=== PATIENT | female | born 1985 | race Caucasian/White ===

== ENCOUNTER 2022-12-16 16:59 | Emergency (ER) | payer OTHER, SELFPAY ==
[2022-12-16 17:15] VITALS: BP 138/82; PULSE 68; RESP 16; TEMP 36.8; O2SAT 100
--- NOTE | 2022-12-16 17:59 | ED.SKABFB ---
HPI - Skin/Abscess/Foreign Bdy General Chief complaint: Skin/Abscess/Foreign Body Stated complaint: Rash Source: patient Mode of arrival: ambulatory Limitations: no limitations History of Present Illness HPI narrative: 37-year-old female presents to [facility] with complaints of erythematous itchy rash to her posterior right thigh and posterior right knee for the past week. Patient denies new medications, new soaps new detergents. Patient reports that she does go fishing often. Patient has been applying hytl-ymo-gyxfzpp hydrocortisone cream with little relief. Patient denies shortness of breath, wheezing, trouble swallowing or difficulty breathing. Patient reports that no other family members have similar rash MD complaint: rash Onset (ago): week(s) (1) Location: [facility] Relieving factors: none Exacerbating factors: none Associated symptoms: denies other symptoms Treatments prior to arrival: OTC topical medication Related Data Home Medications Medication Instructions Recorded Confirmed adalimumab 40 mg/0.4 mL 40 mg subcut DIRECTED 12/16/22 12/16/22 subcutaneous pen kit (Humira(CF) Pen) folic acid 1 mg tablet 1 mg PO DIRECTED 12/16/22 12/16/22 methotrexate sodium (PF) 25 mg/mL 25 mg DIRECTED 12/16/22 12/16/22 injection solution midodrine 5 mg tablet 5 mg DIRECTED 12/16/22 12/16/22 Allergies Allergy/AdvReac Type Severity Reaction Status Date / Time No Known Allergies Allergy Verified 10/02/17 15:25 Review of Systems Constitutional: Constitutional: Denies chills, Denies fatigue, Denies fever(s) and Denies weakness ENT: Denies dizziness Respiratory: Respiratory: Denies cough, Denies dyspnea and Denies wheezing Gastrointestinal: Gastrointestinal: Denies diarrhea, Denies nausea and Denies vomiting Integumentary/Breasts: Skin/Breast: Reports pruritus, Reports rash and Denies skin ulcer Neurologic: Denies vertigo, Denies dizziness, Denies syncope and Denies headache(s) [facility] Family History Family History Sibling Family history of mental disorder Mother Family history of type 2 diabetes mellitus Other Asthma Social History Social History Smoking status: Never smoker Alcohol intake: never Comments At time of signature, I agree with nursing past medical, surgical, social and family history. There is no relevant family history pertinent to the presenting complaint. Exam Const: General: healthy appearing and no acute distress Nutritional Appearance: well nourished Orientation/consciousness: patient oriented x3 Limitations: no limitations HENMT: Head: normal to inspection Eyes: Conjunctivae: conjunctivae normal Neck: Neck: normal visual inspection Resp: Effort & Inspection: normal respiratory effort and not labored Auscultation: clear to auscultation bilaterally, no crackles, no rales, no rhonchi and no wheezes Cardio: Rate: regular rate Rhythm: regular rhythm Heart sounds: no murmurs Skin: General skin exam: normal color Wounds: no wounds Other: Raised linear erythematous rash noted to posterior right thigh and right knee region. There is no surrounding erythema, bruising, purulent drainage or bleeding noted Neuro: General: patient oriented x3 Speech: normal speech Gait exam (Neuro): Normal gait present Psych: Affect: normal affect Attitude: cooperative Course Course Level of Care: Express Care Visit Vital Signs Vital signs: Vital Signs Temperature 36.8 C 12/16/22 17:15 Pulse Rate 68 12/16/22 17:15 Respiratory Rate 16 12/16/22 17:15 Blood Pressure 138/82 12/16/22 17:15 Pulse Oximetry 100 12/16/22 17:15 Oxygen Delivery Room Air 12/16/22 17:15 Temperature 36.8 C 12/16/22 17:15 Pulse Rate 68 12/16/22 17:15 Respiratory Rate 16 12/16/22 17:15 Blood Pressure 138/82 12/16/22 17:15 Pulse Oximetry 100 08/0
== END 2022-12-16 18:09 | disposition home or self-care (01) ==
PROVIDERS: Emergency Provider Nurse Practitioner Family
DX: L24.9 Irritant contact dermatitis, unspecified cause (principal); M06.9 Rheumatoid arthritis, unspecified; Z98.84 Bariatric surgery status
CPT/HCPCS: 99213; G0463

== ENCOUNTER 2024-09-23 07:59 | Observation (INO) | payer OTHER, SELFPAY ==
[2024-09-23] VITALS (17 sets, daily range): BP systolic 110–140; BP diastolic 65–99; PULSE 65–91; RESP 12–20; TEMP 36.6–37.3; O2SAT 93–100; BMI 30.7
--- NOTE | 2024-09-23 | ECHO_ITS ---
Patient Info Name: Marlene Zamarripa Age: 38 years : 1985 Gender: Female Ht: 66 in Wt: 201 lbs BSA: 2.09 m2 HR: 72 bpm BP: 123 / 87 mmHg Heart Rhythm: Sinus Rhythm Technical Quality: Fair Exam Date: 09/23/2024 2:20 PM Patient Status: I Admit Date: 09/23/2024 Exam Type: CA echo doppler w bubble study Complete two-dimensional, color flow and Doppler transthoracic echocardiogram is performed with agitated saline. Staff Referring Physician: Megan Lopez Heating Repair Technician: Laura Ga Attending Provider: Linda Mendoza Summary 1. The atrial septum is normal. 2. Agitated saline study with Valsalva is negative for fhfxq-nw-lolm shunt. 3. There is normal biventricular size and systolic function. 4. There is normal left ventricular diastolic function. 5. There are no significant valvular abnormalities. Left Ventricle Left ventricle is normal in size and systolic function. The left ventricular ejection fraction is visually estimated to be 60-65%. There is normal diastolic function. Right Ventricle The right ventricle is normal in size and systolic function. Left Atria The left atrium is normal size. Right Atria The right atrium is normal size. Atrial Septum The atrial septum is normal. Agitated saline study with Valsalva is negative for wcyhe-li-aewz shunt. Aortic Valve The aortic valve is probably and opens well. There is no aortic regurgitation. Pulmonic Valve The pulmonic valve is not well visualized. There is no color Doppler evidence of pulmonic valve regurgitation. Mitral Valve The mitral valve leaflets are thin and pliable. There is no mitral regurgitation. Tricuspid Valve The tricuspid valve is grossly normal. There is trace tricuspid regurgitation. Pericardium/Pleural Pericardium is normal in appearance with no evidence for significant pericardial effusion. Inferior Vena Cava Normal inferior vena cava with <50% collapse upon inspiration consistent with elevated right atrial pressure, 8 mmHg. Aorta The aortic root at the level of the sinus of Valsalva measures 3 1 cm in diameter. Left Ventricular Outflow Tract Name Value Normal LVOT 2D LVOT Diameter 2.0 cm LVOT Doppler LVOT Peak Velocity 86 cm/s LVOT Peak Gradient 3 mmHg LVOT Mean Gradient 1 mmHg LVOT VTI 18 cm LVOT VTI/AV VTI Ratio 0.9 LVOT Stroke Volume 58 ml LVOT CO 10.2 l/min LVOT CI 4.9 l/min/m2 Pulmonic Valve Name Value Normal RVOT Doppler RVOT Peak Velocity 32 cm/s RVOT Peak Gradient 0 mmHg PV Doppler PV Peak Velocity 62 cm/s PV Peak Gradient 2 mmHg Mitral Valve Name Value Normal MV Diastolic Function MV E Peak Velocity 76 cm/s MV A Peak Velocity 50 cm/s MV E/A 1.5 MV Decel Time (PW) 192 ms MV Annular TDI MV E/e' (Septal) 6.9 MV E/e' (Lateral) 5.1 MV E/e' (Average) 6.0 Tricuspid Valve Name Value Normal TV Regurgitation Doppler TR Peak Velocity 189 cm/s TR Peak Gradient 14 mmHg Estimated PAP/RSVP RA Pressure 8 mmHg <=5 PA Systolic Pressure 22 mmHg <36 RV Systolic Pressure 22 mmHg <36 TV Annular TDI TV Lateral Fabienne s' Velocity 9.3 cm/s >=9.5 Aortic Valve Name Value Normal AV Doppler AV Peak Velocity 94 cm/s AV Peak Gradient 4 mmHg AV Mean Gradient 2 mmHg AV VTI 21 cm AV Area (Cont Eq VTI) 2.8 cm2 >=3.0 AV Area (Cont Eq Apolinar) 2.9 cm2 AV DI (Apolinar) 0.91 AV Regurgitation 2D LVOT Area 3.2 cm2 Ventricles Name Value Normal LV Dimensions 2D/MM IVS Diastolic Thickness (2D) 1.0 cm 0.6-1.0 LVID Diastole (2D) 4.4 cm 3.8-5.2 LVIW Diastolic Thickness (2D) 0.6 cm 0.6-0.9 LVID Systole (2D) 2.6 cm 2.2-3.5 LVOT Diameter 2.0 cm LV Mass (2D Cubed) 106.59 g 67.00-162.00 LV Mass Index (2D Cubed) 51 g/m2 43-95 Relative Wall Thickness (2D) 0.29 <=0.42 LV Fractional Shortening/Ejection Fraction 2D/MM LV Fractional Shortening (2D) 38 % 27-45 LV EF (2D Teichholz) 71 % LV Diastolic Volume (4C MOD) 104 ml LV EF (4C MOD) 61 % LV Diastolic Volume (2C MOD) 106 ml LV EF (2C MOD) 61 % LV Diastolic Volume (BP MOD) 107 ml 46-106 LV Diastolic Volume Index (BP MOD) 51 ml/m2 29-61 LV Systolic Volume (BP MOD) 42 ml 14-42 LV Systolic Volume Index (BP MOD) 20 ml/m2 8-24 LV EF (BP MOD) 60 % 54-74 LV Diastolic Length (4C) 8.7 cm LV Systolic Length (4C) 6.4 cm LV Stroke Volume (4C MOD) 63 ml Atria Name Value Normal LA Dimensions LA Volume (4C A-L) 44 ml LA Volume (BP A-L) 47 ml RA Dimensions RA Systolic Major [place] Length (4C) 5.1 cm 2.2-2.8 RA Area (4C) 17.0 cm2 <=18.0 Report Signatures
--- NOTE | ~2024-09-23 | MR_ITS ---
EXAMINATION: MR brain/brain stem wo/w con DATE: 09/23/2024 13:44 INDICATION: Left-sided weakness TECHNIQUE: Magnetic resonance imaging (MRI) of the brain and brainstem was performed without and with 19 mL ProHance intravenous contrast. Sequences included sagittal and axial T1-weighted SE, axial dif fusion-weighted FS SE, axial 3D SWAN, axial T2-weighted FLAIR, and axial T2-weighted FSE. Postcontras t axial and coronal T1-weighted SE was obtained. Apparent diffusion coefficient (ADC) maps were creat ed. COMPARISON: Head CT and CT angiogram dated 09/23/2024 FINDINGS: There are no areas of restricted diffusion to suggest acute infarction. No intracranial hemorrhage or abnormal intracranial mass lesion. There are no intraparenchymal signal abnormalities seen on the ot her pulse sequences. The ventricles are symmetric and normal in size. There are no abnormal extra-axi al fluid collections. Flow voids are seen in the cerebral arteries on the T2-weighted sequences consi stent with their expected patency. There is mucosal thickening in the ethmoid and maxillary sinuses. Visualized orbits and soft tissues are unremarkable. There are no areas of abnormal enhancement on th e post contrast images. IMPRESSION: 1. Normal brain. No acute intracranial process or abnormally enhancing brain lesions. Reviewed, dictated and finalized at location A. IMPRESSION: 1. Normal brain. No acute intracranial process or abnormally enhancing brain le sions.
--- NOTE | ~2024-09-23 | CT_ITS ---
EXAMINATION: CT BRAIN W/O DATE: 09/23/2024 08:15 INDICATION: Left arm weakness. TECHNIQUE: Computed tomography (CT) of the head was performed without intravenous contrast. The dose- length product was 605.33 mGy-cm. Automated exposure control and iterative reconstruction technique w ere employed. COMPARISON: No prior studies for comparison. FINDINGS: Normal brain parenchymal volume for age. Normal nascimento-white differentiation. No acute intrac ranial hemorrhage, infarction, mass or mass effect. No ventriculomegaly or midline shift. Midline sagittal images demonstrate a normal corpus callosum, c raniovertebral junction and sella turcica. Basilar cisterns are patent. There is mild mucosal thickening of the maxillary sinuses. No air-fluid levels. Mastoids are pneumati zed. No depressed skull fractures. IMPRESSION: 1. No acute intracranial abnormality. As per stroke protocol, I called these results to emergency room, discussed with Dr. Megan Lopez MD at 09/23/2024 8:21 CDT. Reviewed, dictated and finalized at location A. IMPRESSION: 1. No acute intracranial abnormality. As per stroke protocol, I called these results to emergency room, discussed wit h Dr. Megan Lopez MD at 09/23/2024 8:21 CDT.
--- NOTE | ~2024-09-23 | XR_ITS ---
Portable chest x-ray Comparison: 06/07/2006 Clinical History: CVA Findings: Lungs are clear, without focal consolidation or pleural effusion. Cardiomediastinal silho uette is stable. Bones and soft tissues are unremarkable. Impression: Normal chest. Reviewed, dictated and finalized at location . Impression: Normal chest.
--- NOTE | ~2024-09-23 | CT_ITS ---
CT ANGIOGRAM NECK AND HEAD History: CVA. Technique: Serial spiral axial images through the head and neck were obtained during arterial phase I V injection of 100 cc of Omnipaque 350. 3-D postprocessing and MIP images were then reconstructed on the remote workstation. Dose reduction technique was used on this scan by utilizing automated exposur e control and iterative reconstruction technique. The dose-length product (DLP) was 1040.28 mGy-cm. CTA neck findings: Bilateral vertebral are patent. Bilateral common carotid, internal carotid, and e xternal carotid arteries are patent. No large vessel occlusion or stenosis. No aneurysm. The proximal right internal carotid artery demonstrates 0% stenosis relative to the normal distal artery lumen di ameter. The proximal left internal carotid artery demonstrates 0% stenosis relative to the normal dis bindu artery lumen diameter. CTA head findings: Distal vertebral arteries, basilar artery, and posterior cerebral arteries are pat ent. Distal internal carotid arteries, middle cerebral arteries, and anterior cerebral arteries are p atent. No large vessel occlusion. No stenosis or aneurysm. Impression: Unremarkable exam. Reviewed, dictated and finalized at location M. Impression: Unremarkable exam.
--- OUTSIDE RECORDS SUMMARY | 2024-09-23 08:03 | XMS_ITS | Clinical Summary ---
Author Organization [facility] Noosh Address [address] [place] [address] Care Team Providers Care Nursing Unit Manager Name Role Phone Mao Capps MD, Kingsley Mckeon Primary Care Provider Carlos Lopez MD Unavailable [phone] Jyoti Alfonso PUG MACHINE OPERATOR-[facility] Unavailable [phone] Willian Resendiz MD Unavailable [phone] Source Comments [facility],non-owned Affiliates and Associated Physician Practices is amultiple site organization consisting of ambulatory clinics and hospital sitesin [place], [place], [place] and [place]. This disclosure is being madepursuant to the Care Everywhere program and may not contain all information available regarding this patient. Last updated 18.[facility] Allergies Active Allergy Reactions Criticality Noted Date Comments Adhesive Sensitivity Rash Medium 09/29/2018 States she breaks out with paper tape Medications * Be aware that medications may not be up to date on this document. Alwaysverify current medications with the patient. calcium citrate-vitami n D (CITRACAL PLUS D) 315-200 MG-UNIT tablet Take 1 (one) tablet by mouth 3 times daily Active VITAMIN K PO Take 1 tablet by mouth once daily Active SYRINGE/NEEDLE , DISP, 1 ML (BD ECLIPSE SYRINGE) 25G X 5/8 1 ML MISC Use 1 Each every 7 days 4 Each 11 0 Active fluticasone propionate (Flonase) 50 MCG/ACT nasal spray [place] 2 (two) sprays into each nostril once daily 48 g 4 2 Active midodrine (Proamatine) 5 MG tablet Take 1 (one) tablet by mouth 3 times daily before meals Last dose 1600. 180 tablet 4 Active Adalimumab-bww d (Hadlima) 40 MG/0.4ML injectionIndic ations:Rheumat oid Arthritis Inject 0.4 mL subcutaneously every 7 days Reasons: Rheumatoid Arthritis 1.6 mL 11 4 Active Active Problems Problem Noted Date Diagnosed Date Hiatal hernia 03/26/2023 Long-term current use of imm unosuppressive biologic agent (adalimumab biosimilar)) 09/30/2022 Pannus, abdominal 12/28/2021 Class 1 obesity due to exces s calories with body mass index (BMI) of 33.0 to 33.9 in adult 08/19/2019 Seropositive rheumatoid arthritis 08/19/2019 Overview (05/24/2021): 12/27/2020 OV, Dr. 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 No change in current treatment plan with additional refills provided to both specialty and local pharmacy. Recheck again in 6 months or sooner if needed. 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 Will reevaluate again in 3 months or sooner if needed (hopefully not). Methotrexate, meterman, current use 06/27/2021 07/24/2023 Assessment & Plan (06/27/2021 4:02 PM ASTROPHYSICS PROFESSOR): No recent findings suggest developing side effects from the use of methotrexate with probable slight elevation in ALT due to recovery from recent acute COVID-19 infection. Continue current treatment plan and recommend routine repeated monitoring laboratory testing every 12 weeks for continued safe use of this medication. Continue daily folic acid supplement at a minimum of 1 mg per day to reduce the risk of methotrexate potential side effects. BMI 40.0-44.9, adult 08/19/2019 021 Rheumatoid arthritis 03/11/2012 022 Overview (12/12/2020): 03/06/2019 Hospital visit Overview: Rheumatoid arthritis Chronic rheumatic arthritis 01/11/2022 Overview (12/12/2020): 11/21/2020 OV, Alexa Mccracken NP Obese 08/19/2019 Immunizations Immunization Administration Dates Next Due INFLUENZA VACCINE, TRIV. (AF LURIA, FLUZONE TRIVALENT; 6MO+) (IIV3) 02/04/2013 Covid Pfizer primary monoval ent 12+ yr 0.3mL Purple cap 12/27/2020,06/22/2020,06/02/2020 DTP 06/12/1989, 9,03/12/1988,1987 HEP B VACCINE, ADULT 3 DOSE 08/16/1997 HIB VACCINE 06/12/1989 INFLUENZA VACCINE 02/03/2017,02/28/2014 INFLUENZA VACCINE, QUADR. (F LUZONE; FLULAVAL; FLUARIX; AFLURIA QUADRIVALENT; 6MO+), 0.5 ML (IIV4) 02/10/2021,02/19/2020,02/18/2018,2015 MMR 02/21/1989 POLIO OPV 12/06/1992, 0,05/15/1988,1987,01/16/1988 TDAP (7yrs+) 01/16/2020,01/15/1998 Family History Medical History Relation Name Comments CAD (Coronary Artery Disease) Father Cancer - Liver Father angiosarcoma Hypertension Father Cancer - Other Maternal Grandfather Cancer - Other Maternal Grandmother Diabetes - Type 2 Mother Cancer - Other Paternal Grandfather Cancer - Other Paternal Grandmother angio sarcoma Asthma Sister Lupus Sister Relation Name Status Comments Father Maternal Grandfather Maternal Grandmother Mother Alive Paternal Grandfather Paternal Grandmother Sister Alive Social History Tobacco Use Types Packs/Day Years Used Date Smoking Tobacco: Former Cigarettes Q uit: 03/17/2017 Smokeless Tobacco: Never Tobacco Cessation:Counseling Given: Not Answered Alcohol Use Standard Drinks/Week Comments Not Currently 0 (1 standard drink = 0.6 oz pur e alcohol) occ AUDIT-C Answer Date Recorded Q1: How often do you have a drink containing alcohol? Never 03/26/2023 Q2: How many drinks containi ng alcohol do you have on a typical day when you are drinking? Patient does not drink Frequency of Binge Drinking Not on file 03/12 Overall Financial Resource Strain (CARDIA) Answe r Date Recorded How hard is it for you to pa y for the very basics like food, housing, medical care, and heating? Not hard at all 03/26/2023 PHQ-2 Answer Date Recorded Patient Health Questionnaire-2 Score 0 07/23/2023 [facility] - Occupational Stress Questionnaire Answer Date Recorded Do you feel stress - tense, restless, nervous, or anxious, or unable to sleep at night because your mind is troubled all the time - these days? Not at all 03/26/2023 Hunger Vital Sign Answer Date Recorded Within the past 12 months, y ou worried that your food would run out before you got the money to buy more. Never true 03/26/20 23 Within the past 12 months, t he food you bought just didn't last and you didn't have money to get more. Never true 03/26/2023 PRAPARE - Transportation Answer Date Re corded In the past 12 months, has l ack of transportation kept you from medical appointments or from getting medications? No 03/12 In the past 12 months, has l ack of transportation kept you from meetings, work, or from getting things needed for daily living? No 03/26/2023 Housing Stability Vital Sign Answer Luis e Recorded In the last 12 months, was t here a time when you were not able to pay the mortgage or rent on time? Yes 03/26/2023 In the last 12 months, how many places have you lived? 1 03/26/2023 In the last 12 months, was t here a time when you did not have a steady place to sleep or slept in a fci (including now)? No 03/26/2023 Comments No Sex and Gender Information Value Date Recorded Sex Assigned at Not on file Legal Sex Female 10:18 AM CDT Gender Identity Not on file Sexual Orientation Not on file Last Filed Vital Signs Vital Sign Reading Time Taken Comments Blood Pressure 106/72 01/22/2024 3:44 PM CDT Pulse 82 01/22/2024 3:44 PM CDT Temperature 36.9 C (98.4 F) 07/24/2023 3:28 PM CDT Respiratory Rate 16 09/15/2023 3:37 PM CDT Oxygen Saturation 99% 01/22/2024 3:44 PM CDT Inhaled Oxygen Concentration - - Weight 91.2 kg (201 lb) 01/22/2024 3:44 PM CDT Height 165.1 cm (5' 5 ) 01/22/2024 3:44 PM CDT Body Mass Index 33.45 01/22/2024 3:44 PM CDT Plan of Treatment Upcoming Encounters Date Type Department Care Team (Late st Contact Info) Description 01/17/2025 3:40 PM CDT Office Visit [facility] - Rheumatology [address], [address] [place] [address] Pasquale Diaz DO [address] [place] [address] Health Maintenance Due Date Last Done Comments HEPATITIS B VACCINE (2 of 3 - 3-dose series) 09/13/1997 08/16/1997 COVID-19 VACCINE ( season) 2024 12/27/2020, 06/22/2020, 06/02/2020 DEPRESSION SCREENING 05/12/2024 07/23/2023, 04/01/2023, 08/06/2021 PAP with HPV 10/26/2024 10/27/2019 (Done Outside Per Report) INFLUENZA VACCINE (Season Ended) 2025 02/10/2021, 02/19/2020, 03/02/2019 (Done Outside Per Patient), Additional history exists DTAP/TDAP/TD VACCINES (7 - Td or Tdap) 01/15/2030 01/16/2020, 01/15/1998, 06/12/1989, Additional history exists ZOSTER VACCINE (1 of 2) 11/12/2037 HIB VACCINE Completed 06/12/1989 HEPATITIS C SCREENING Completed 12/28/2021 , 02/26/2021, 12/24/2019, Additional history exists HIV SCREENING Completed 12/28/2021 HPV VACCINE Aged Out No longer eligi ble based on patient's age to complete this topic MENINGOCOCCAL (Group B) VACCINE SHARED DECISION-MAKING Aged Out No longer eligible based on patient's age to complete this topic MENINGOCOCCAL GROUPS A/C/Y/W VACCINE Aged Out No longer eligible based on patient's age to complete this topic PNEUMOCOCCAL VACCINE Aged Out No long er eligible based on patient's age to complete this topic Goals Goal Patient Goal Type Associated Problems Recent Progress Patient-Stated? Author Right level of care at the right time. General On track( 022 11:58 AM CDT) Yes Kalie Alvarado, RN Note: Marlene will call the doctor if she has an increased temperature (greater than 101), unrelieved pain, symptoms that are not relieved or worsening, and side effects of medications. Progress toward goal attainment: 0% : Ongoing / No progress Barriers to goal attainment: No barriers identified at time of encounter. Procedures Procedure Name Priority Date/Time Associated Diagnosis Comments HEPATITIS C RNA QUANTITATIVE Routine 12/28/2021 5:35 PM CDT Diagnosis unknown HIV-1 HIV-2 ANTIBODY + HIV P24 AG PANEL DARIUS 12/28/2021 5:35 PM CDT Pannus, abdominal from Last 3 Months or Most Recently Relevant to Health Maintenance Results * HIV-1 HIV-2 ANTIBODY + HIV P24 AG PANEL (12/28/2021 5:35 PM CDT) Pathologist [facility] HIV1/2 Ab + P24 Ag Non Reactive Non Reactive 12/28/2021 6:[address] [facility] Blood BLOOD SPECIMEN / Unknown Venipuncture / Unknown 12/28/2021 5:35 PM CDT 12/28/2021 6:[address] [facility] - 12/28/2021 6:47 PM CDT No Laboratory evidence of HIV infection. us Penny Levi MD LAB - CHEMISTRY ORDERABLES Bessy l Result [facility] [address] [place] [address] * HEPATITIS C RNA QUANTITATIVE PCR (12/28/2021 5:35 PM CDT) [facility] Hepatitis C RNA PCR, Interp Not detected Not detected 01/01/2022 9:[address] [facility] Blood BLOOD SPECIMEN / Unknown Venipuncture / Unknown 12/28/2021 5:35 PM CDT 12/28/2021 6:[address] [facility] - 01/01/2022 9:07 AM CDT The Hepatitis C viral (HCV) RNA analysis utilized a serum sample, real-time reverse land measurer PCR, and is reported as Not Detected, Detected (<12 IU/mL), Quantity (IU/mL) or >30,000,000 IU/mL. The limit of quantitation of the assay is 12 IU/mL (100% of samples with this HCV RNA level were detected). The linear range is from 12 IU/mL to 30,000,000 IU/mL. Values less than 12 IU/mL are reported as Detected (<12 IU/mL). Values greater than 30,000,000 IU/mL are reported as >30,000,000 IU/mL. The detection/quantitation of HCV RNA in serum is based on the isolation of HCV RNA with reverse land measurer of genomic HCV RNA followed by real-time PCR in the presence of an unrelated RNA internal control. The internal control ensures that RNA is isolated, and that no general significant inhibitors of the RT-PCR process are present. The analysis was performed using a U.S. FDA approved test methodology. us Kyle Rushing MD LAB - CHEMISTRY ORDERABLES Fin al Result [facility] [address] [place] [address], [place] [phone] from Last 3 Months or Most Recently Relevant to Health Maintenance Insurance CARE CARE Advance Directives * Full Code (Latest Code Status on File) Date Activated Date Inactivated Comments 03/26/2023 4:22 PM 03/27/2023 5:01 PM * Full Code Date Activated Date Inactivated Comments 12/28/2021 6:05 PM 12/29/2021 3:25 PM * Full Code Date Activated Date Inactivated Comments 10/20/2018 5:36 PM 10/21/2018 6:49 PM Healthcare Agents on File Name Relationship Healthcare Agent Relationshi p Communication Niya Pace Mother Patient Water [employer] ([place], [place], [place]) Care Teams Nursing Unit Manager Relationship Specialty Start Date End Date Kingsley Cavanaugh Jr., MD PCP - General Family Medicine 03/17/17 Carlos Lopez MD [address] [place] [id number] Rheumatology 03/17/17 Jyoti Alfonso, [facility] [address] [place] [address] Nurse Practitioner [facility] 12/16/18 Willian Resendiz MD [address] [place] [address] Neurology 04/24/20
--- OUTSIDE RECORDS SUMMARY | 2024-09-23 08:03 | XMS_ITS ---
Author Organization [facility] Address [address] [place] [address] Care Team Providers Care Aba Tutor Name Role Phone Neelima Sanchez MD Primary Care Provider [phone] Transplant Episode Kidney Potential Donor [facility] ([place], [place]) - [facility] Referred on 12/23/2019 Marked as Active on 12/23/2019 Kidney CoordinatorLauren Reis RN Fax: N/A Email: N/A Care Team Name Role Phone Fax Email Lauren Reis RN Kidney Coordinator [phone] N/A N/A Events Pre-Donation Referred: 12/23/2019
--- OUTSIDE RECORDS SUMMARY | 2024-09-23 08:03 | XMS_ITS | Encounter Summary ---
Author Organization [facility] Address [address] [place], [place] [address] [address] Care Team Providers Care Child Nurse Name Role Phone Mao Capps MD, Kingsley Mckeon Primary Care Provider Carlos Lopez MD Unavailable [phone] Jyoti Alfonso [facility] Unavailable Mao Capps MD, Kingsley Mckeon Unavailable Willian Resendiz MD Unavailable [phone] Judith Noonan ELECTRIC MOTOR WINDERS ASSEMBLER Unavailable [phone] Reason for Visit * Reason Onset Date Comments General 09/13/2021 Encounter Details Date Type Department Care Team (Late st Contact Info) Description 09/13/2021 Telephone [facility]at[facility] [address] [facility], [facility] [place] [address] Norma Mata MD [address] [place] [address] [address] [place] [address] General Social History Tobacco Use Types Packs/Day Years Used Date Smoking Tobacco: Former Cigarettes Q uit: 03/17/2017 Smokeless Tobacco: Never Alcohol Use Standard Drinks/Week Comments Yes 0 (1 standard drink = 0.6 oz pur e alcohol) occ PHQ-2 Answer Date Recorded PHQ2 TOTAL SCORE 0 08/06/2021 Comments No Sex and Gender Information Value Date Recorded Sex Assigned at Not on file Legal Sex Female 10:18 AM CDT Gender Identity Not on file Sexual Orientation Not on file documented as of this encounter Functional Status * Is person deaf or have serious hearing difficulty? Answer Date of Assessment Author No 12/25/2020 9:17 AM KIARAT Bianca Garrett RN * Is person blind or have serious difficulty seeing? Answer Date of Assessment Author No 12/25/2020 9:17 AM CDT Bianca Garrett RN * Does person have serious difficulty walking/climbing stairs? Answer Date of Assessment Author No 12/25/2020 9:17 AM KIARAT Bianca Garrett RN * Does person have difficulty dressing/bathing? Answer Date of Assessment Author No 12/25/2020 9:17 AM Bianca Mercedes RN * Does person have difficulty doing errands alone? Answer Date of Assessment Author No 12/25/2020 9:17 AM Bianca Mercedes RN documented as of this encounter Mental Status * Does person have difficulty concentrating/remembering/making decisions? Answer Entry Date Author No 12/25/2020 9:17 AM Bianca Mercedes RN documented in this encounter Miscellaneous Notes * Telephone Encounter - Mila Moreno - 09/13/2021 9:21 AM CDT Pt called this morning stating that she is needing a letter of recommendation/referral for her plastic surgeon procedure for insurance purposes. Pt states she is needing something of the nature to state that she is needing this procedure done and why. The fax number to Dr. Levi office is [phone]. Please advise.. documented in this encounter Plan of Treatment Upcoming Encounters Date Type Department Care Team (Late st Contact Info) Description 01/17/2025 3:40 PM CDT Office Visit [facility] - Rheumatology [address] [facility], [address] [place] [address] Pasquale Diaz DO [address] [facility] [address] [place] [address] documented as of this encounter Goals Goal Patient Goal Type Associated Problems [...] No barriers identified at time of encounter. documented as of this encounter Visit Diagnoses Not on filedocumented in this encounter Care Teams Child Nurse Relationship Specialty Start Date End Date Kingsley Cavanaugh Jr., MD PCP - General Family Medicine 03/17/17 Kingsley Cavanaugh Jr., MD [address] [place] [address] [facility] 11/10/19 10/28/22 Carlos Lopez MD [address] [place] [address] Rheumatology 03/17/17 Jyoti Alfonso, SWEETIE-INDEPENDENT PRODUCER [address] [place] [address] Nurse Practitioner [facility] 12/16/18 Willian Resendiz MD [address] [place] [address] Neurology 04/24/20 Judith Noonan MSW Outpatient Sow Manager Care Management 03/28/23 04/11/23 documented as of this encounter
--- OUTSIDE RECORDS SUMMARY | 2024-09-23 08:03 | XMS_ITS | Referral Summary ---
Author Organization [facility] Address [address] [place] [address] Care Team Providers Care Residential Pest Control Technician Name Role Phone Neelima Sanchez MD Primary Care Provider [phone] Allergies No known active allergies Medications ENBREL SURECLICK 50 mg/mL (0.98 mL) pen injector Inject 50 mg under the skin once a week. 12 Syringe 2 03/17/2017 Active folic acid (FOLVITE) 1 mg tablet Take 1 tablet (1 mg total) by mouth daily. 90 tablet 3 03/17/2017 Active methotrexate 25 mg/mL preservative free injection Inject 1 mL (25 mg total) under the skin once a week. 10 mL 3 03/17/2017 Active naproxen (NAPROSYN,ALEVE) 500 mg tablet Take 1 tablet (500 mg total) by mouth 2 (two) times a day with meals. 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 Overview (12/03/2016): Positive tb test treated with 9 month of INH completed July 2015 Furuncle of chest wall 04/18/2015 Rheumatoid arthritis 03/11/2012 Overview (08/15/2016): Rheumatoid arthritis Morbid obesity 07/05/2010 Resolved Problems Problem Noted Date Diagnosed Date Resolved Date Drug indicated 03/11/2012 12/03/2016 Overview (08/16/2016): Encounter for long-term (current) use of high-risk Immunizations Immunization Administration Dates Next Due Influenza, Unspecified 02/03/2017 Social History Tobacco Use Types Packs/Day Years Used Date Smoking Tobacco: Former Cigarettes Q uit: 09/2015 Smokeless Tobacco: Never Alcohol Use Standard Drinks/Week Comments Yes 0 (1 standard drink = 0.6 oz pur e alcohol) Comments Unknown Sex and Gender Information Value Date Recorded Sex Assigned at Not on file 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 Gender Identity Not on file Sexual Orientation Not on file Last Filed Vital Signs Vital Sign Reading Time Taken Comments Blood Pressure 120/80 03/05/2017 10:38 AM CDT Pulse 80 03/05/2017 10:38 AM CDT Temperature 37.3 C (99.2 F) 03/05/2017 10:38 AM CDT Respiratory Rate 16 03/05/2017 10:38 AM CDT Oxygen Saturation - - Inhaled Oxygen Concentration - - Weight 159.7 kg (352 lb) 03/05/2017 10:38 AM CDT Height 167.6 cm (5' 6 ) 03/05/2017 10:38 AM CDT Body Mass Index 56.81 03/05/2017 10:38 AM CDT Plan of Treatment Not on file Insurance IDPA Care Teams Residential Pest Control Technician Relationship Specialty Start Date End Date Neelima Sanchez MD [address] [facility] [address] [place] [address] PCP - General Rheumatology 04/07/17
--- OUTSIDE RECORDS SUMMARY | 2024-09-23 08:03 | XMS_ITS | Encounter Summary ---
Author Organization [facility] Address [address] [facility] [place] [address] Care Team Providers Care Street Openings Inspector Name Role Phone Gentry Aparicio MD Primary Care Provider [phone] Mao Capps MD, Kingsley Mckeon Primary Care Provider Carlos Lopez MD Unavailable [phone] Mago Heller MD Unavailable [phone] Jyoti Alfonso POSTBED STITCHER-SPRAY PAINTER Unavailable Maria Brower POSTBED STITCHER-SPRAY PAINTER Unavailable [phone] Mao Capps MD, Joseph Theodore Unavailable Willian Resendiz MD Unavailable [phone] Judith Noonan Unavailable [phone] Mao Capps MD, Joseph Theodore Unavailable Mao Capps MD, Joseph Theodore Unavailable Maria Brower POSTBED STITCHER-SPRAY PAINTER Unavailable [phone] Encounter Details Date Type Department Care Team (Late st Contact Info) Description 12/31/2016 Lab Requisition [facility] [address] [place] [id number] Unknown, Provider Social History Tobacco Use Types Packs/Day Years Used Date Smoking Tobacco: Never Assessed Comments Unknown Sex and Gender Information Value Date Recorded Sex Assigned at Not on file Legal Sex Female 10:18 AM CDT Gender Identity Not on file Sexual Orientation Not on file documented as of this encounter Plan of Treatment Upcoming Encounters Date Type Department Care Team (Late st Contact Info) Description 01/17/2025 3:40 PM CDT Office Visit [facility] - Rheumatology [address] [facility], [address] [place] [address] Pasquale Diaz DO [address] [facility] [place] [address] documented as of this encounter Procedures Procedure Name Priority Date/Time Associated Diagnosis Comments VARICELLA ZOSTER ANTIBODY IGG Routine 12/31/2016 9:20 AM CDT documented in this encounter Results * VARICELLA ZOSTER ANTIBODY IGG (12/31/2016 9:20 AM CDT) Varicella zoster Virus Antibody IgG 669 Immune >165 index 01/02/2017 12:13 PM CDT [facility] ([facility]) Comment: Negative <135 Equivocal 135 - 165 Positive >165 A positive result generally indicates exposure to the pathogen or administration of specific immunoglobulins, but it is not indication of active infection or stage of disease. Blood BLOOD SPECIMEN / Unknown Venipuncture / Unknown 12/31/2016 9:20 AM CDT 12/31/2016 6:01 PM CDT Narrative [facility] ([facility]) - 01/02/2017 12:13 PM CDT Performed at: [address] [place] [id number] Sports Reporter: Miguel Ko PhD, Phone: [phone] us Provider Unknown LAB - CHEMISTRY ORDERABLES Bessy morales Result [facility] ([facility]) [address] [place] [address] documented in this encounter Visit Diagnoses Not on filedocumented in this encounter Additional Health Concerns Infection Onset Date Last Indicated Resolved Time COVID-19 Under Investigation 01/18/2020 01/18/2020 01/18/2020 8:33 PM CDT documented as of this encounter Care Teams Street Openings Inspector Relationship Specialty Start Date End Date Gentry Aparicio MD [address] [facility] [address] [place] [address] PCP - General Internal Medicine 12/31/16 03/16/17 Kingsley Cavanaugh Jr., MD [address] [place] [address] [address] [place] [address] PCP - General Family Medicine 03/17/17 Maria Brower APRN-SPRAY PAINTER [address] [address] [place] [address] PCP - Attributed-Exclusive Choice 04/11/19 05/11/19 Kingsley Cavanaugh Jr., MD [address] [place] [address] PCP - Attributed-[facility] 11/10/19 10/28/22 Kingsley Cavanaugh Jr., MD [address] [place] [address] PCP - Attributed-Exclusive Choice 05/14/17 09/17/18 Kingsley Cavanaugh Jr., MD [address] [place] [address] PCP - Attributed-Exclusive Choice 01/10/19 04/10/19 Maria Brower APRN-SPRAY PAINTER [address] [place], [place] [id number] PCP - Attributed-Exclusive Choice 11/09/18 01/09/19 Carlos Lopez MD [address] [facility] [address] [place] [address] Rheumatology 03/17/17 Mago Heller MD [address] [facility] [address] [place] [address] Obstetrics and Gynecology 03/17/17 12/15/18 Jyoti Alfonso, POSTBED STITCHER-[facility] [address] [place], [place] [address] Nurse Practitioner [facility] 12/16/18 Willian Resendiz MD [address] [facility] [address] [place] [address] Neurology 04/24/20 Judith Noonan MSW Outpatient Ski Guide Care Management 03/28/23 04/11/23 documented as of this encounter
--- OUTSIDE RECORDS SUMMARY | 2024-09-23 08:03 | XMS_ITS | Clinical Summary ---
Author Organization [facility] Address [address] [place] [address] Care Team Providers Care Food Production Worker Name Role Phone Neelima Sanchez MD Primary Care Provider [phone] Allergies No known active allergies Medications ENBREL [...] Administration Dates Next Due Influenza, Unspecified 02/03/2017 Surgical History Surgery Date Site/Laterality Comments TONSILLECTOMY 05/12/1993 - 05/11/1994 ADENOIDECTOMY 05/12/1994 - 05/11/1995 Family History Medical History Relation Name Comments Coronary artery disease Father Diabetes Mother Sleep apnea Mother Anemia Other 1 Family history of Anemia; Nephrolithiasis Other 2 Family histo ry of Kidney Stones; Migraines Other 3 Family history of Migraines; Seizures Other 4 Family history of Seizure disorder; Asthma Other 5 Family history of Asthma; Cancer Other 6 Hypertension Other 7 Family history of Hypertension; Heart attack Other 8 Family history of Myocardial infarction; Cancer Other 9 mat. 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
--- NOTE | 2024-09-23 08:05 | ECG_ITS ---
Test Date: 2024-09-23 08:48:53 Measurements Intervals [place] Rate: 67 P: 34 MS: 184 QRS: 67 QRSD: 96 T: 38 QT: 409 QTc: 432 Interpretive Statements SINUS RHYTHM NORMAL ECG No previous ECG available for comparison Electronically Signed On 09-24-2024 09:34:14 CDT by Sb Cooper M.D.
[2024-09-23 08:06] LABS: Glucose Point of Care 107 mg/dl (65-105)
--- OUTSIDE RECORDS SUMMARY | 2024-09-23 08:07 | XMS_ITS | Clinical Summary ---
Author Organization [facility] Address [address] [place] [address] Care Team Providers Care Underwriting Consultant Name Role Phone Kingsley Cavanaugh MD Primary Care Provi tapan Allergies No known active allergies Social History Tobacco Use Types Packs/Day Years Used Date Smoking Tobacco: Former Cigarettes Q uit: 09/27/2014 Smokeless Tobacco: Never Alcohol Use Standard Drinks/Week Comments No 0 (1 standard drink = 0.6 oz pur e alcohol) Comments Unknown Sex and Gender Information Value Date Recorded Sex Assigned at Female 10/28/2018 8:11 PM CDT Legal Sex Female 7:36 PM CDT Gender Identity Female 10/28/2018 8:11 PM CDT Sexual Orientation Straight 10/28/2018 8: 11 PM CDT Last Filed Vital Signs Vital Sign Reading Time Taken Comments Blood Pressure 111/73 06/09/2021 7:35 PM SAW MAN Pulse 114 06/09/2021 7:35 PM SAW MAN Temperature 36.5 C (97.7 F) 06/09/2021 7:35 PM SAW MAN Respiratory Rate 24 06/09/2021 7:35 PM SAW MAN Oxygen Saturation 100% 06/09/2021 7:45 PM SAW MAN Inhaled Oxygen Concentration - - Weight 163.3 kg (360 lb) 10/28/2018 8:02 PM CDT Height 167.6 cm (5' 6 ) 10/28/2018 8:02 PM CDT Body Mass Index 58.11 10/28/2018 8:02 PM CDT Plan of Treatment Health Maintenance Due Date Last Done Comments Cervical Cancer Screening Pap Smear (Age 30 to 64) Every 3 Years 1987 Annual Physical 11/12/1990 Cervical Cancer Screening Pap with HPV Testing (Age 30 to 64) Every 5 Years 11/12/2017 Cervical Cancer Screening with HPV 11/12/2017 COVID-19 Vaccine ( season) 2024 12/27/2020, 06/22/2020, 06/02/2020 DTaP, Tdap and Td Vaccines (10 - Td or Tdap) 01/15/2030 01/16/2020, 12/24/2001, 01/15/1998, Additional history exists Hepatitis B Vaccines Completed 08/16/1997, 03/15/1997, 02/15/1997 Hepatitis C Completed 12/28/2021 HPV Vaccines Aged Out No longer eligi ble based on patient's age to complete this topic Meningococcal B Vaccine Aged Out No l onger eligible based on patient's age to complete this topic Meningococcal Vaccine Aged Out No vidal nikki eligible based on patient's age to complete this topic Pneumococcal Vaccine: Pediatrics (0 to 5 Years) and At-Risk Patients (6 to 49 Years) Aged Out No longer eligible based on patient's age to complete this topic RSV Immunizations Under 20 Months Aged Out No longer eligible based on patient's age to complete this topic Insurance Care Teams Underwriting Consultant Relationship Specialty Start Date End Date Kingsley Cavanaugh MD PCP - General FAMILY PRACTICE 10/28/18
--- NOTE | 2024-09-23 08:13 | ED_ITS ---
HPI - Neuro Symptoms/Deficit General Chief Complaint: Neuro Symptoms/Deficit Stated Complaint: sharp pain in head and left arm went numb History of Present Illness HPI Narrative: Patient with history of rheumatoid arthritis presents here with sudden headache, left arm numbness followed by weakness to her left arm, 1st symptoms started 45 minutes ago. Related Data Home Medications Medication Instructions Recorded Confirmed Last Taken Type midodrine 5 mg tablet 5 mg PO DIRECTED 12/16/22 09/23/24 09/07/24 History adalimumab-bwwd 40 mg/0.4 mL 40 mg subcut WEEKLY 09/23/24 09/23/24 09/17/24 History subcutaneous auto-injector (Hadlima(CF) PushTouch) calcium 315 mg (as 1 tablet PO DAILY 09/23/24 09/23/24 09/23/24 History citrate)-vitamin D3 5 mcg (200 unit) tablet (Calcium Citrate + D) multivit-iron 18 mg-folic acid 400 1 tablet PO DAILY 09/23/24 09/23/24 09/23/24 History mcg-calcium 500 mg-minerals tablet (One-A-Day Womens Formula) Allergies Allergy/AdvReac Type Severity Reaction Status Date / Time No Known Allergies Allergy Verified 09/23/24 08:55 Review of Systems 2 Review of Systems: All systems reviewed & are unremarkable except as noted in HPI and below PMFSH Family History Family History (Updated 09/23/24 @ 10:30 by Faraz Suero RN) Sibling Family history of mental disorder Asthma Mother Family history of type 2 diabetes mellitus Father Liver cancer Heart disease Grandparent Liver cancer Social History Social History Smoking status: Current every day smoker Tobacco type: e-cigarettes/vaping Alcohol intake: never Substance use: never Do You Feel Safe in your Home?: Yes Lack of Transportation: No Lack of Food: Never True Current Housing: I Have Housing Concerned About Future Housing: No Difficulty Paying Gas/Electric Bills: No Difficulty Paying for Meds: No Currently Unemployed: No Education: Associate Degree Difficulty w/ Childcare or Family Care: No Spiritual care concerns: No Exam 2 Narrative: EXAMINATION OF ORGAN SYSTEMS/BODY AREAS: Constitutional: Vital signs per nursing GENERAL:[No acute distress, non-toxic appearing.] HEAD: Normal with no signs of head trauma. EYES: EOMI, conjunctiva normal, no gaze deviation ENT: Hearing grossly intact LUNGS: Nonlabored breathing. HEART: [Regular rate and rhythm] ABD: [Soft], [nontender to palpation] EXT: Left arm weakness SKIN: [No rashes or lesions.] NEURO: [Alert and oriented x 3. Diminished sensation, ataxia, and weakness with drift to left upper extremity. Clear speech] PSYCH: Slightly anxious affect Course Vital Signs Vital signs: Vital Signs Pulse Rate 91 09/23/24 08:27 Respiratory Rate 12 09/23/24 08:27 Pulse Oximetry 100 09/23/24 08:27 Temperature 98.2 F 09/23/24 10:13 Pulse Rate 72 09/23/24 10:13 Respiratory Rate 20 09/23/24 10:13 Blood Pressure 123/87 09/23/24 10:13 Pulse Oximetry 98 09/23/24 10:30 Oxygen Delivery Room Air 09/23/24 10:30 MDM - Neuro Symptoms/Deficit MDM Narrative Medical decision making narrative: Patient presenting with left-sided numbness and weakness, onset 1 hour ago. I did evaluate her immediately, NIH stroke scale on my exam is 3 4 diminished sensation, drift of left arm, and ataxia, she is within TNK window, stat CT head without acute hemorrhage. Thankfully when I went back to re-evaluate the patient when she returned from CT, her left-sided weakness was improving. She stated that at the worst and she was not able to move the left arm at all, and at this time she just has a slight weakness/drift but better than when she 1st arrived here. Given the rapidly improving deficits, discussed with stroke neurologist Dr. Fregoso at [facility], agreed not candidate for thrombolytics, recommend Plavix load, star aspirin at 81 mg, statin. Accepted for transfer. Updated patient on this, she would really prefer not to be transferred, would also prefer to go home however after discussion she is okay to being admitted here. Discussed with neurologist and hospitalist or agreeable to patient admission. Lab Data 09/23/24 08:25 09/23/24 08:25 Labs: Lab Results 09/23/24 09/23/24 09/23/24 Range/Units 08:03 08: 08:25 WBC 6.9 (4.5-10.0) K/mm3 RBC 4.68 (4.2-5.4) M/mm3 Hgb 13.1 (12.0-15.0) g/dL Hct 41.9 (37.0-47.0) % MCV 89.5 (80-100) fl MCH 28.0 (26-34) pg MCHC 31.3 L (32-36) g/dl RDW 13.5 (11.5-14.5) % Plt Count 176 (150-375) k/mm3 MPV 11.1 H (7.4-10.4) fl Immature Gran % (Auto) 0.3 (0-0.5) % Neut % (Auto) 44.1 L (45.5-73.1) % Lymph % (Auto) 37.0 (18.3-44.2) % Russell % (Auto) 17.6 H (2.6-8.5) % Eos % (Auto) 0.6 (0-4.4) % Baso % (Auto) 0.4 (0.2-1.2) % Lymph # (Auto) 2.56 (0.9-3.2) K/mm3 Russell # (Auto) 1.2 H (0.1-0.6) K/mm3 Eos # (Auto) 0.0 (0-0.3) K/mm3 Baso # (Auto) 0.0 (0.0-0.1) K/mm3 Abs Immat Gran (auto) 0.02 (0.00-0.031) K/mm3 Absolute Neuts (auto) 3.1 (1.3-6.7) K/mm3 Absolute Nucleated RBC 0.000 (0.0-0.012) K/mm3 Nucleated RBC % 0.0 (0.0-0.2) % PT 13.0 (11.1-14.7) Seconds INR 1.0 APTT 26.2 (22.3-36.8) Seconds Sodium 142 (137-145) mmol/L Potassium 3.3 L (3.4-5.0) mmol/L Chloride 105 (98-107) mmol/L Carbon Dioxide 28 (22-30) mmol/L Anion Gap 9 (4-12) mmol/L BUN 12 (7-17) mg/dL Creatinine 0.80 0.70 (0.7-1.2) mg/dL Estim Creat Clear Calc Not Reportable Not Reportable Estimated GFR > 60 > 60 (59 - ) Glucose 101 (65-110) mg/dL POC Capillary Glucose 107 H (65-105) mg/dl Calcium 9.1 (8.4-10.2) mg/dL Total Bilirubin 0.4 (0.2-1.3) mg/dL AST 31 (14-36) U/L ALT 25 (6-35) U/L Alkaline Phosphatase 79 (38-126) U/L Troponin I < 0.012 (0.000-0.034) ng/mL Total Protein 8.0 (6.3-8.2) g/dL Albumin 4.2 (3.5-5.1) g/dL POC Urine HCG, Qual (Negative) 09/23/24 Range/Units 08:53 WBC (4.5-10.0) K/mm3 RBC (4.2-5.4) M/mm3 Hgb (12.0-15.0) g/dL Hct (37.0-47.0) % MCV (80-100) fl MCH (26-34) pg MCHC (32-36) g/dl RDW (11.5-14.5) % Plt Count (150-375) k/mm3 MPV (7.4-10.4) fl Immature Gran % (Auto) (0-0.5) % Neut % (Auto) (45.5-73.1) % Lymph % (Auto) (18.3-44.2) % Russell % (Auto) (2.6-8.5) % Eos % (Auto) (0-4.4) % Baso % (Auto) (0.2-1.2) % Lymph # (Auto) (0.9-3.2) K/mm3 Russell # (Auto) (0.1-0.6) K/mm3 Eos # (Auto) (0-0.3) K/mm3 Baso # (Auto) (0.0-0.1) K/mm3 Abs Immat Gran (auto) (0.00-0.031) K/mm3 Absolute Neuts (auto) (1.3-6.7) K/mm3 Absolute Nucleated RBC (0.0-0.012) K/mm3 Nucleated RBC % (0.0-0.2) % PT (11.1-14.7) Seconds INR APTT (22.3-36.8) Seconds Sodium (137-145) mmol/L Potassium (3.4-5.0) mmol/L Chloride (98-107) mmol/L Carbon Dioxide (22-30) mmol/L Anion Gap (4-12) mmol/L BUN (7-17) mg/dL Creatinine (0.7-1.2) mg/dL Estim Creat Clear Calc Estimated GFR (59 - ) Glucose (65-110) mg/dL POC Capillary Glucose (65-105) mg/dl Calcium (8.4-10.2) mg/dL Total Bilirubin (0.2-1.3) mg/dL AST (14-36) U/L ALT (6-35) U/L Alkaline Phosphatase (38-126) U/L Troponin I (0.000-0.034) ng/mL Total Protein (6.3-8.2) g/dL Albumin (3.5-5.1) g/dL POC Urine HCG, Qual Negative (Negative) Critical Care Time Critical Care Time Critical Care Time: Yes Total Critical Care Time: 31 Discharge Plan Discharge Clinical Impression: Left-sided weakness Patient Disposition: Still a Patient Condition: Stable Quality Stroke Date of last known normal: 09/23/24 Time of last known normal: 07:30 Stroke Scale Stroke Scale 1: Stroke scale date:: 09/23/24 Stroke scale time:: 08:12 1a Level of consciousness: alert-0 1b Level of consciousness questions: answers both correctly-0 1c Level of consciousness commands: obeys both correctly-0 2 Best gaze: normal-0 3 Visual: no visual loss-0 4 Facial palsy: normal-0 5a Motor: left arm: drift-1 5b Motor: right arm: no drift-0 6a Motor: left leg: no drift-0 6b Motor: right leg: no drift-0 7 Limb ataxia: present in one limb-1 8 Sensory: pinprick less sharp-1 9 Best language: no aphasia-0 10 Dysarthria: normal-0 11 Extinction and inattention: no abnormality-0 Level:: 3
[2024-09-23 08:21] LABS: Estimated Glomerular Filt Rate > 60
[2024-09-23 08:32] LABS: Basophils Percent Auto 0.4 % (0.2-1.2); Eosinophils Percent Auto 0.6 % (0-4.4); Hematocrit 41.9 % (37.0-47.0); Hemoglobin 13.1 g/dL (12.0-15.0); Immature Granulocyte Absolute 0.02 K/mm3 (0.00-0.031); Immature Granulocyte Percent A 0.3 % (0-0.5); Lymphocytes Absolute Auto 2.56 K/mm3 (0.9-3.2); Mean Corpuscular HGB Conc 31.3 g/dl (32-36); Mean Corpuscular Volume 89.5 fl (80-100); Mean Platelet Volume 11.1 fl (7.4-10.4); Monocytes Absolute Auto 1.2 K/mm3 (0.1-0.6); Monocytes Percent Auto 17.6 % (2.6-8.5); Neutrophils Absolute Auto 3.1 K/mm3 (1.3-6.7); Neutrophils Percent Auto 44.1 % (45.5-73.1); Platelet Count Result 176 k/mm3 (150-375); Red Blood Count 4.68 M/mm3 (4.2-5.4); Red Cell Distribution Width 13.5 % (11.5-14.5); White Blood Count 6.9 K/mm3 (4.5-10.0)
[2024-09-23 08:45] LABS: Partial Thromboplastin Time 26.2 Seconds (22.3-36.8)
[2024-09-23 08:46] LABS: Alanine Aminotransferase 25 U/L (6-35); Albumin Level 4.2 g/dL (3.5-5.1); Alkaline Phosphatase 79 U/L (38-126); Anion Gap 9 mmol/L (4-12); Aspartate Amino Transferase 31 U/L (14-36); Bilirubin,Total 0.4 mg/dL (0.2-1.3); Blood Urea Nitrogen 12 mg/dL (7-17); Calcium 9.1 mg/dL (8.4-10.2); Carbon Dioxide 28 mmol/L (22-30); Chloride 105 mmol/L (98-107); Estimated Glomerular Filt Rate > 60; Glucose 101 mg/dL (65-110); Potassium 3.3 mmol/L (3.4-5.0); Sodium 142 mmol/L (137-145)
[2024-09-23 08:55] LABS: BEDSIDEPREGUCG Negative (Negative)
[2024-09-23 08:57] LABS: Troponin I < 0.012 ng/mL (0.000-0.034)
[2024-09-23] MEDS: ASPIRIN 81 MG CHEWABLE TABLET PO (08:58)
[2024-09-23] MEDS: CLOPIDOGREL BISULFATE 300 MG TABLET PO (08:58)
--- NOTE | 2024-09-23 10:13 | ADMGEN ---
This patient, Marlene Zamarripa, was admitted to IMU Room 209-01. Patient/family oriented to hospital policies and general routines including ID bracelet, bed and alarms, visiting hours, pain management, procedures, bathroom and other care routines, personal items, smoking policy, room service/diet, and visiting hours. Information on how to activate the Rapid Response Team has been discussed. Patient/Family are encouraged to report perceived risks to care and to ask questions if they do not understand what they are told or what they should do.
--- NOTE | 2024-09-23 12:20 | P.CONNEU_ITS ---
Assessment and Plan Assessment and plan (1) Left-sided weakness: Code(s): R53.1 - Weakness Status: Acute Assessment and Plan: the weakness lasted for approximately 1-2 hours and she feels that she has mostly improved although she feels that the left arm still feels slightly heavy. She had symptoms of headache followed by the weakness. In the Emergency 5 blood pressure 123/87. CT angiogram head and neck did not show any significant abnormality. This also included CT scan of brain which also did not show any significant abnormalities. She will require MRI the brain, echocardiogram and continue with cardiac monitoring for any cardiac arrhythmias. She has history of rheumatoid arthritis and hence possibility of vasculitis could be a consideration. In view of her age I will go ahead and order testing for hypercoagulable states. Some of these may take some time to come back. She may continue with the antiplatelets and atorvastatin in the meanwhile. I have given her my phone number to follow up [facility] after discharge. (2) Bariatric surgery status: Code(s): Z98.84 - Bariatric surgery status Status: Acute (3) Rheumatoid arthritis: Code(s): M06.9 - Rheumatoid arthritis, unspecified Status: Acute Plan as given above. Should follow up the results of investigations. 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 She was alarmed and decided to come to the hospital. She dressed herself and drove with 1 hand. When she arrived here the weakness is slightly better but by the time she had radiologic studies done the left arm weakness of further improving. CT angiogram head and neck was performed which did not show any significant abnormalities. ER physician talked to the stroke team at to [facility] who did not feel that she needed to be transferred over there. Patient denies any history of cardiac valve disease or cardiac arrhythmias or stroke in the past. She does suffer from headaches which are usually in the bifrontal area and are dull aching pain sometimes may last for hours or all day and they occur up to 2 times a week. Her sister also suffer from migraine. Patient weighs but does not smoke. No history of alcohol drinking. She lives with a son with 17-year-old. There is no history of diabetes mellitus. She has had a bariatric surgery 2019 and she lost 250 lb weight and now she weighs around 190 lb. Hence he weighed 440 lb to the surgery there is no history of cardiac disease. She has history of rheumatoid arthritis for which she sees a scow hand to [facility] is on treatment. She states that she developed orthostatic hypotension after she had bariatric surgery and she is on midodrine. Review of Systems 2 Review of Systems: All systems reviewed & are unremarkable except as noted in HPI and below PMFSH Past Medical History Medical History (Updated 09/23/24 @ 12:25 by Juan Sanchez MD) Rheumatoid arthritis Surgical History Surgical History (Updated 09/23/24 @ 12:25 by Juan Sanchez MD) Bariatric surgery status Family History Family History Sibling Family history of mental disorder Asthma Mother Family history of type 2 diabetes mellitus Father Liver cancer Heart disease Grandparent Liver cancer Social History Social History Smoking status: Current every day smoker Tobacco type: e-cigarettes/vaping Alcohol intake: never Substance use: never Do You Feel Safe in your Home?: Yes Lack of Transportation: No Lack of Food: Never True Current Housing: I Have Housing Concerned About Future Housing: No Difficulty Paying Gas/Electric Bills: No Difficulty Paying for Meds: No Currently Unemployed: No Education: Associate Degree Difficulty w/ Childcare or Family Care: No Spiritual care concerns: No Meds Home Medications and Allergies Home Medications Medication Instructions Recorded Confirmed Type midodrine 5 mg tablet 5 mg PO DIRECTED 12/16/22 09/23/24 History adalimumab-bwwd 40 mg/0.4 mL 40 mg subcut WEEKLY 09/23/24 09/23/24 History subcutaneous auto-injector (Hadlima(CF) PushTouch) calcium 315 mg (as 1 tablet PO DAILY 09/23/24 09/23/24 History citrate)-vitamin D3 5 mcg (200 unit) tablet (Calcium Citrate + D) multivit-iron 18 mg-folic acid 400 1 tablet PO DAILY 09/23/24 09/23/24 History mcg-calcium 500 mg-minerals tablet (One-A-Day Womens Formula) Allergies Allergy/AdvReac Type Severity Reaction Status Date / Time No Known Allergies Allergy Verified 09/23/24 08:55 Vital Signs Vital Signs - 24 hr 09/23/24 08:27 09/23/24 08:29 09/23/24 08:29 Temperature 97.9 F Pulse Rate 91 78 78 Respiratory Rate 12 16 16 Blood Pressure 139/95 H 137/95 H Pulse Oximetry 100 100 100 Oxygen Delivery 09/23/24 08:30 09/23/24 08:31 09/23/24 08:46 Temperature 98.5 F Pulse Rate 71 75 65 Respiratory Rate 14 17 16 Blood Pressure 132/91 H 136/95 H Pulse Oximetry 99 98 99 Oxygen Delivery Room Air 09/23/24 09:13 09/23/24 09:15 09/23/24 09:16 Temperature Pulse Rate 77 66 71 Respiratory Rate 15 12 15 Blood Pressure 140/99 H Pulse Oximetry 100 99 98 Oxygen Delivery 09/23/24 10:13 09/23/24 10:30 09/23/24 11:49 Temperature 98.2 F 99.1 F Pulse Rate 72 68 Respiratory Rate 20 16 Blood Pressure 123/87 134/84 Pulse Oximetry 98 98 100 Oxygen Delivery Room Air Exam 2 Const: General: cooperative, well developed and alert O rientation/consciousness: patient oriented x3 HENMT: Head: atraumatic Mouth: Yes oropharynx normal Eyes: Alignment and Position: position normal Pupils: Equal, round and reactive pupils present EOM: EOMs intact bilaterally Neck: Neck: supple Resp: Effort & Inspection: normal respiratory effort Cardio: Rate: regular rate Rhythm: regular rhythm Heart sounds: Murmur heart sound present ( No murmur) Neuro: General: patient oriented x3 Cranial nerves: Yes CN's II-XII intact bilaterally, Yes Equal, round and reactive pupils present, Yes facial symmetry and Yes Midline tongue present Cognition (Neuro): normal cognition Speech: normal speech Motor exam (neuro): 5/5 motor strength present throughout S ensory Exam: normal sensation Coordination: [id number] test normal and Normal rapid alternating movements of the distal upper extremity present (Neuro) Other: patient able to walk independently Results Labs 09/23/24 08:25 09/23/24 08:25 Labs: Short CBC 09/23/24 Range/Units 08:25 WBC 6.9 (4.5-10.0) K/mm3 Hgb 13.1 (12.0-15.0) g/dL Hct 41.9 (37.0-47.0) % Plt Count 176 (150-375) k/mm3 BMP 09/23/24 09/23/24 08:15 08:25 Sodium 142 Potassium 3.3 L Chloride 105 Carbon Dioxide 28 BUN 12 Creatinine 0.80 0.70 Glucose 101 Calcium 9.1 Cardiac Enzymes 09/23/24 Range/Units 08:25 Troponin I < 0.012 (0.000-0.034) ng/mL Liver Function 09/23/24 Range/Units 08:25 Total Bilirubin 0.4 (0.2-1.3) mg/dL AST 31 (14-36) U/L ALT 25 (6-35) U/L Alkaline Phosphatase 79 (38-126) U/L Albumin 4.2 (3.5-5.1) g/dL
[2024-09-23 13:39] LABS: CRP 0.6 mg/dL (<1.0)
[2024-09-23 13:43] LABS: Fibrinogen 359 mg/dl (215-510)
[2024-09-23 14:09] LABS: Vitamin D 25 Hydroxy 37.1 ng/mL
[2024-09-23 14:41] LABS: Folic Acid 16.3 ng/mL (2.76->20)
--- NOTE | 2024-09-23 15:02 | PM.IMHP ---
H&P: HPI History of Present Illness Date/Time: 09/23/24 15:02 Chief Complaint: LUE weakness Narrative: 38 yo female with PMH of RA, orthostatic hypotension and Headaches who presented to the ER on account of LUE weakness and headache. She stated she was in her state of health until about 730 am when she noticed LUE weakness and loss sensation. Noted she immediately started coming to the ER. Noted the complete weakness lasted about 20 minutes and started improving. Otherwise denies any chest pain, SOB, vomiting, abd pain, diarrhea and no falls. ER eval Vital signs notable for BP 139/95, labs notable K 3.3, CT head, CTA head and neck, CXR and Brain MRI no acute changes. Neurology consulted Review of Systems Review of Systems: All other systems were reviewed and negative except as noted in the HPI above. [facility] Past Medical History Medical History (Updated 09/23/24 @ 12:25 by Juan Sanchez MD) Rheumatoid arthritis Surgical History Surgical History (Updated 09/23/24 @ 12:25 by Juan Sanchez MD) Bariatric surgery status Family History Family History Sibling Family history of mental disorder Asthma Mother Family history of type 2 diabetes mellitus Father Liver cancer Heart disease Grandparent Liver cancer Social History Social History Smoking status: Current every day smoker Tobacco type: e-cigarettes/vaping Alcohol intake: never Substance use: never Do You Feel Safe in your Home?: Yes Lack of Transportation: No Lack of Food: Never True Current Housing: I Have Housing Concerned About Future Housing: No Difficulty Paying Gas/Electric Bills: No Difficulty Paying for Meds: No Currently Unemployed: No Education: Associate Degree Difficulty w/ Childcare or Family Care: No Spiritual care concerns: No Meds Home Medications and Allergies Home Medications Medication Instructions Recorded Confirmed Type midodrine 5 mg tablet 5 mg PO DIRECTED 12/16/22 09/23/24 History adalimumab-bwwd 40 mg/0.4 mL 40 mg subcut WEEKLY 09/23/24 09/23/24 History subcutaneous auto-injector (Hadlima(CF) PushTouch) calcium 315 mg (as 1 tablet PO DAILY 09/23/24 09/23/24 History citrate)-vitamin D3 5 mcg (200 unit) tablet (Calcium Citrate + D) multivit-iron 18 mg-folic acid 400 1 tablet PO DAILY 09/23/24 09/23/24 History mcg-calcium 500 mg-minerals tablet (One-A-Day Womens Formula) Allergies Allergy/AdvReac Type Severity Reaction Status Date / Time No Known Allergies Allergy Verified 09/23/24 08:55 Vital Signs Vital Signs - 24 hr 09/23/24 08:27 09/23/24 08:29 09/23/24 08:29 Temperature 97.9 F Pulse Rate 91 78 78 Respiratory Rate 12 16 16 Blood Pressure 139/95 H 137/95 H Pulse Oximetry 100 100 100 Oxygen Delivery 09/23/24 08:30 09/23/24 08:31 09/23/24 08:46 Temperature 98.5 F Pulse Rate 71 75 65 Respiratory Rate 14 17 16 Blood Pressure 132/91 H 136/95 H Pulse Oximetry 99 98 99 Oxygen Delivery Room Air 09/23/24 09:13 09/23/24 09:15 09/23/24 09:16 Temperature Pulse Rate 77 66 71 Respiratory Rate 15 12 15 Blood Pressure 140/99 H Pulse Oximetry 100 99 98 Oxygen Delivery 09/23/24 10:13 09/23/24 10:30 09/23/24 10:30 Temperature 98.2 F Pulse Rate 72 68 Respiratory Rate 20 16 Blood Pressure 123/87 Pulse Oximetry 98 98 100 Oxygen Delivery Room Air Room Air 09/23/24 11:49 09/23/24 12:00 Temperature 99.1 F Pulse Rate 68 68 Respiratory Rate 16 16 Blood Pressure 134/84 Pulse Oximetry 100 100 Oxygen Delivery Room Air Exam Narrative: General: alert and comfortable Eyes: EOMI, PERRLA ENNT External ears normal, Neck is supple, no masses, Respiratory systems: Clear to auscultation Cardiovascular S1, S2, normal rhythm, no murmur, rub, or gallop; no thrill or palpable murmurs on palpation. Gastrointestinal: soft, non-tender, and non-distended abdomen with no masses; BS present Skin: no rash, lesions, ulcerations, subcutaneous nodules or induration Musculoskeletal: no abnormality and no tenderness, normal ROM Neurologic: Alert and oriented x3, LUE weakness 4/5, normal other extremities H&P: Results Labs Labs: Short CBC 05/15/25 Range/Units 08:25 WBC 6.9 (4.5-10.0) K/mm3 Hgb 13.1 (12.0-15.0) g/dL Hct 41.9 (37.0-47.0) % Plt Count 176 (150-375) k/mm3 BMP 09/23/24 09/23/24 08:15 08:25 Sodium 142 Potassium 3.3 L Chloride 105 Carbon Dioxide 28 BUN 12 Creatinine 0.80 0.70 Glucose 101 Calcium 9.1 Cardiac Enzymes 09/23/24 Range/Units 08:25 Troponin I < 0.012 (0.000-0.034) ng/mL Liver Function 09/23/24 Range/Units 08:25 Total Bilirubin 0.4 (0.2-1.3) mg/dL AST 31 (14-36) U/L ALT 25 (6-35) U/L Alkaline Phosphatase 79 (38-126) U/L Albumin 4.2 (3.5-5.1) g/dL Assessment and Plan Assessment and plan (1) Left-sided weakness: Code(s): R53.1 - Weakness Status: Acute Plan Headache and LUE Weakness, resolving ?Vasculities and autoimmune disease resolving MRI, CTA head and neck, CXR unremarkable Lipid panel and A1c, ECHO pending PT/OT/ST Aspirin and Lipitor Rheumatic arthritis continue home meds Orthostatic hypotension continue Midodrine DVT prophylaxis on Lovenox Full code Surrogate decision maker Mother Niya Zamarripa
[2024-09-23 16:30] LABS: Hemoglobin A1C 5.1 % (<5.7)
[2024-09-24] VITALS (10 sets, daily range): BP systolic 103–121; BP diastolic 61–75; PULSE 61–90; RESP 16–20; TEMP 36.4–36.9; O2SAT 92–98
[2024-09-24 05:03] LABS: Basophils Percent Auto 0.7 % (0.2-1.2); Eosinophils Absolute Auto 0.1 K/mm3 (0-0.3); Eosinophils Percent Auto 1.5 % (0-4.4); Hematocrit 39.5 % (37.0-47.0); Hemoglobin 12.4 g/dL (12.0-15.0); Immature Granulocyte Absolute 0.01 K/mm3 (0.00-0.031); Immature Granulocyte Percent A 0.2 % (0-0.5); Lymphocytes Absolute Auto 2.54 K/mm3 (0.9-3.2); Lymphocytes Percent Auto 46.5 % (18.3-44.2); Mean Corpuscular HGB Conc 31.4 g/dl (32-36); Mean Corpuscular Hemoglobin 28.2 pg (26-34); Mean Corpuscular Volume 89.8 fl (80-100); Mean Platelet Volume 11.3 fl (7.4-10.4); Monocytes Absolute Auto 0.7 K/mm3 (0.1-0.6); Monocytes Percent Auto 12.1 % (2.6-8.5); Neutrophils Absolute Auto 2.1 K/mm3 (1.3-6.7); Platelet Count Result 158 k/mm3 (150-375); Red Cell Distribution Width 13.3 % (11.5-14.5); White Blood Count 5.5 K/mm3 (4.5-10.0)
[2024-09-24 05:14] LABS: Cholesterol 131 mg/dL (0-200); HDL Direct 64 mg/dL; Triglycerides 71 mg/dL (<150)
[2024-09-24 05:15] LABS: Alanine Aminotransferase 22 U/L (6-35); Albumin Level 3.8 g/dL (3.5-5.1); Alkaline Phosphatase 76 U/L (38-126); Anion Gap 8 mmol/L (4-12); Aspartate Amino Transferase 30 U/L (14-36); Bilirubin,Total 0.5 mg/dL (0.2-1.3); Blood Urea Nitrogen 11 mg/dL (7-17); Calcium 8.8 mg/dL (8.4-10.2); Carbon Dioxide 27 mmol/L (22-30); Chloride 106 mmol/L (98-107); Estimated CRCL calculation 115 ml/min; Estimated Glomerular Filt Rate > 60; Glucose 89 mg/dL (65-110); Magnesium 2.1 mg/dL (1.6-2.3); Potassium 4.2 mmol/L (3.4-5.0); Sodium 141 mmol/L (137-145)
[2024-09-24 05:16] LABS: Hemoglobin A1C 5.1 % (<5.7)
[2024-09-24 05:24] LABS: LDL Cholesterol Direct 42 mg/dL
--- NOTE | 2024-09-24 08:24 | P.PNIM_ITS ---
Progress Note: A&P Assessment and Plan (1) Left-sided weakness: Code(s): R53.1 - Weakness Status: Acute Plan Headache and LUE Weakness, resolving ?Vasculities and autoimmune disease resolving MRI, CTA head and neck, CXR unremarkable Lipid panel and A1c, ECHO pending PT/OT/ST Aspirin and Lipitor Rheumatic arthritis continue home meds Orthostatic hypotension continue Midodrine DVT prophylaxis on Lovenox Full code Surrogate decision maker Mother Niya Zamarripa Subjective Date/time seen: 09/24/24 08:24 Interval history: no overnight events Review of Systems Review of Systems: All other systems were reviewed and negative except as noted in the HPI above. Exam Narrative: General: alert and comfortable Eyes: EOMI, PERRLA ENNT External ears normal, Neck is supple, no masses, Respiratory systems: Clear to auscultation Cardiovascular S1, S2, normal rhythm, no murmur, rub, or gallop; no thrill or palpable murmurs on palpation. Gastrointestinal: soft, non-tender, and non-distended abdomen with no masses; BS present Skin: no rash, lesions, ulcerations, subcutaneous nodules or induration Musculoskeletal: no abnormality and no tenderness, normal ROM Neurologic: Alert and oriented x3, LUE weakness 4/5, normal other extremities Objective Data Vital Signs Vital Signs: Vital Signs - 24 hr 09/23/24 08:27 09/23/24 08:29 09/23/24 08:29 Temperature 97.9 F Pulse Rate 91 78 78 Respiratory Rate 12 16 16 Blood Pressure 139/95 H 137/95 H Pulse Oximetry 100 100 100 Oxygen Delivery 09/23/24 08:30 09/23/24 08:31 09/23/24 08:46 Temperature 98.5 F Pulse Rate 71 75 65 Respiratory Rate 14 17 16 Blood Pressure 132/91 H 136/95 H Pulse Oximetry 99 98 99 Oxygen Delivery Room Air 09/23/24 09:13 09/23/24 09:15 09/23/24 09:16 Temperature Pulse Rate 77 66 71 Respiratory Rate 15 12 15 Blood Pressure 140/99 H Pulse Oximetry 100 99 98 Oxygen Delivery 09/23/24 10:13 09/23/24 10:30 09/23/24 10:30 Temperature 98.2 F Pulse Rate 72 68 Respiratory Rate 20 16 Blood Pressure 123/87 Pulse Oximetry 98 98 100 Oxygen Delivery Room Air Room Air 09/23/24 11:49 09/23/24 12:00 09/23/24 12:00 Temperature 99.1 F Pulse Rate 68 68 69 Respiratory Rate 16 16 Blood Pressure 134/84 Pulse Oximetry 100 100 Oxygen Delivery Room Air 09/23/24 16:00 09/23/24 16:00 09/23/24 16:00 Temperature 98.3 F Pulse Rate 69 68 69 Respiratory Rate 20 16 Blood Pressure 113/83 Pulse Oximetry 100 100 Oxygen Delivery Room Air 09/23/24 18:00 09/23/24 19:55 09/23/24 20:00 Temperature 98.2 F Pulse Rate 88 72 Respiratory Rate 16 Blood Pressure 110/65 Pulse Oximetry 93 Oxygen Delivery Room Air 09/23/24 20:00 09/23/24 22:00 09/24/24 00:00 Temperature Pulse Rate 72 70 Respiratory Rate Blood Pressure Pulse Oximetry Oxygen Delivery Room Air 09/24/24 00:00 09/24/24 00:05 09/24/24 02:00 Temperature 97.6 F Pulse Rate 90 61 63 Respiratory Rate 16 Blood Pressure 103/61 Pulse Oximetry 98 Oxygen Delivery 09/24/24 04:00 09/24/24 04:00 09/24/24 05:59 Temperature 98.5 F Pulse Rate 63 79 Respiratory Rate 16 Blood Pressure 110/75 Pulse Oximetry 96 Oxygen Delivery Room Air 09/24/24 06:00 09/24/24 07:52 Temperature 98.2 F Pulse Rate 66 86 Respiratory Rate 16 Blood Pressure 114/63 Pulse Oximetry 92 Oxygen Delivery Intake/Output Intake/Output: Intake & Output 09/21/24 09/22/24 09/23/24 09/24/24 23:59 23:59 23:59 23:59 Intake Total 540 550 Output Total 450 Balance 90 550 Meds/Results Medications: Active Medications Generic Name Dose Route Start Last Admin Trade Name Freq PRN Reason Stop Dose Admin Aspirin 81 mg 09/24/24 09:00 Aspirin 81 Mg Enteric Tablet PO QAM [facility] Atorvastatin Calcium 40 mg 09/24/24 09:00 Atorvastatin 40 Mg Tablet PO DAILY [facility] Calcium Citrate 1 tablet 09/24/24 09:00 Calcium Citrate 315 Mg/Vitamin D 6.25 Mcg (250 Units) Tab PO DAILY [facility] Midodrine 5 mg 09/23/24 16:35 Midodrine Hcl 2.5 Mg Tablet PO TID PRN for systolic BP less than 100 Miscellaneous Information 0 each 09/23/24 00:01 Hadlima- At Bedside XX 10/23/24 00:00 CLARIFY NAA Multivitamins/Calcium 1 tablet 09/24/24 09:00 Therapeutic Multivitamins/Minerals Tab (*Bkc) PO DAILY NAA Non-Formulary Medication 40 mg 09/30/24 09:00 Adalimumab-Bwwd [Hadlima(Cf) Pushtouch] SUB-Q 10/30/24 08:59 WEEKLY NAA Perflutren Lipid Microsphere 0 ml 09/23/24 09:32 Perflutren Lipid Microspheres 1.5 Ml Vial Diluted To 10 Ml Total Volume IV PUSH 09/26/24 09:33 ONCE PRN adequate visualization Protocol Perflutren Lipid Microsphere 0 ml 09/23/24 09:35 Perflutren Lipid Microspheres 1.5 Ml Vial Diluted To 10 Ml Total Volume IV PUSH 09/26/24 09:35 ONCE PRN adequate visualization Protocol Perflutren Lipid Microsphere 0 ml 09/23/24 14:55 Perflutren Lipid Microspheres 1.5 Ml Vial Diluted To 10 Ml Total Volume IV PUSH 09/26/24 14:55 ONCE PRN adequate visualization Protocol Radiology Results: ITS Impressions Head CT 09/23/24 08:17 IMPRESSION: 1. No acute intracranial abnormality. As per stroke protocol, I called these results to emergency room, discussed with Dr. Megan Lopez MD at 09/23/2024 8:21 CDT. Head/Neck CTA 09/23/24 08:46 Impression: Unremarkable exam. Chest X-Ray 09/23/24 08:48 Impression: Normal chest. Brain MRI 09/23/24 15:39 IMPRESSION: 1. Normal brain. No acute intracranial process or abnormally enhancing brain lesions. Labs Labs: Laboratory Results - last 24 hr 09/23/24 09/23/24 09/23/24 08:25 08:53 13:01 WBC 6.9 RBC 4.68 Hgb 13.1 Hct 41.9 MCV 89.5 MCH 28.0 MCHC 31.3 L RDW 13.5 Plt Count 176 MPV 11.1 H Immature Gran % (Auto) 0.3 Neut % (Auto) 44.1 L Lymph % (Auto) 37.0 [place] % (Auto) 17.6 H Eos % (Auto) 0.6 Baso % (Auto) 0.4 Lymph # (Auto) 2.56 [place] # (Auto) 1.2 H Eos # (Auto) 0.0 Baso # (Auto) 0.0 Abs Immat Gran (auto) 0.02 Absolute Neuts (auto) 3.1 Absolute Nucleated RBC 0.000 Nucleated RBC % 0.0 PT 13.0 INR 1.0 APTT 26.2 Fibrinogen 359 Sodium 142 Potassium 3.3 L Chloride 105 Carbon Dioxide 28 Anion Gap 9 BUN 12 Creatinine 0.70 Estim Creat Clear Calc Not Reportable Estimated GFR > 60 Glucose 101 Hemoglobin A1c 5.1 Calcium 9.1 Magnesium Total Bilirubin 0.4 AST 31 ALT 25 Alkaline Phosphatase 79 Troponin I < 0.012 C-Reactive Protein 0.6 Total Protein 8.0 Albumin 4.2 Triglycerides Cholesterol LDL Cholesterol Direct HDL Direct Vitamin B12 362.0 Vitamin D 25-Hydroxy 37.1 Folate 16.3 TSH 1.020 POC Urine HCG, Qual Negative 09/24/24 04:47 WBC 5.5 RBC 4.40 Hgb 12.4 Hct 39.5 MCV 89.8 MCH 28.2 MCHC 31.4 L RDW 13.3 Plt Count 158 MPV 11.3 H Immature Gran % (Auto) 0.2 Neut % (Auto) 39.0 L Lymph % (Auto) 46.5 H [place] % (Auto) 12.1 H Eos % (Auto) 1.5 Baso % (Auto) 0.7 Lymph # (Auto) 2.54 [place] # (Auto) 0.7 H Eos # (Auto) 0.1 Baso # (Auto) 0.0 Abs Immat Gran (auto) 0.01 Absolute Neuts (auto) 2.1 Absolute Nucleated RBC 0.000 Nucleated RBC % 0.0 PT INR APTT Fibrinogen Sodium 141 Potassium 4.2 Chloride 106 Carbon Dioxide 27 Anion Gap 8 BUN 11 Creatinine 0.64 L Estim Creat Clear Calc 115 Estimated GFR > 60 Glucose 89 Hemoglobin A1c 5.1 Calcium 8.8 Magnesium 2.1 Total Bilirubin 0.5 AST 30 ALT 22 Alkaline Phosphatase 76 Troponin I C-Reactive Protein Total Protein 7.0 Albumin 3.8 Triglycerides 71 Cholesterol 131 LDL Cholesterol Direct 42 HDL Direct 64 Vitamin B12 Vitamin D 25-Hydroxy Folate TSH POC Urine HCG, Qual
[2024-09-24] MEDS: CALCIUM CITRATE 315 MG/VITAMIN D 6.25 MCG (250 UNITS) TAB 1 TABLET PO (09:10)
[2024-09-24] MEDS: ASPIRIN 81 MG ENTERIC TABLET PO (09:10)
[2024-09-24] MEDS: THERAPEUTIC MULTIVITAMINS/MINERALS TAB (*BKC) 1 TABLET PO (09:10)
[2024-09-24] MEDS: ATORVASTATIN 40 MG TABLET PO (09:10)
[2024-09-24] MEDS: LORATADINE 10 MG TABLET PO (10:21)
--- NOTE | 2024-09-24 12:18 | PCPTNOTE ---
Pt independent in room and reports having no LE weakness at this time. Hospitalist notified and approved discharge of therapy orders. Nurse aware.
--- NOTE | 2024-09-24 13:03 | PM.DS ---
DS: Admitting Diagnosis Discharge Date 09/24/24 Admitting Diagnosis LUE weakness DS: Discharge Diagnosis Discharge Diagnosis (1) TIA (transient ischemic attack): Code(s): G45.9 - Transient cerebral ischemic attack, unspecified Status: Acute DS: Summary Hospital Course Hospital Course: 38 yo female with PMH of RA, orthostatic hypotension and Headaches who presented to the ER on account of LUE weakness and headache. She stated she was in her state of health until about 730 am when she noticed LUE weakness and loss sensation. Noted she immediately started coming to the ER. Noted the complete weakness lasted about 20 minutes and started improving. Otherwise denies any chest pain, SOB, vomiting, abd pain, diarrhea and no falls. ER eval Vital signs notable for BP 139/95, labs notable K 3.3, CT head, CTA head and neck, CXR and Brain MRI no acute changes. Neurology consulted A1c 5.1, LDL 42, MRI brain, CTA head and neck, CXR unremarkable. Post anticoagulants, protein C activity, APC resistance ratio, protein S activity, antithrombin 3 activity, factor 5 Leiden mutation pending. Discussed with the neurology he was okay with aspirin and will follow patient in the office. Follow-up with PCP in 3-5 days, follow-up with Neurology in the office in 1 month Time Spent with Patient Time attestation: Total time spent providing and/or coordinating discharge services: DS: Data Data Completed and Pending Labs on day of discharge: Labs from last 24 hours 09/24/24 09/23/24 04:47 13:01 WBC 5.5 RBC 4.40 Hgb 12.4 Hct 39.5 MCV 89.8 MCH 28.2 MCHC 31.4 L RDW 13.3 Plt Count 158 MPV 11.3 H Immature Gran % (Auto) 0.2 Neut % (Auto) 39.0 L Lymph % (Auto) 46.5 H [place] % (Auto) 12.1 H Eos % (Auto) 1.5 Baso % (Auto) 0.7 Lymph # (Auto) 2.54 [place] # (Auto) 0.7 H Eos # (Auto) 0.1 Baso # (Auto) 0.0 Abs Immat Gran (auto) 0.01 Absolute Neuts (auto) 2.1 Absolute Nucleated RBC 0.000 Nucleated RBC % 0.0 Fibrinogen 359 LA PTT Screen Pending LA PTT Comment Pending dRVVT Screen Pending Lupus Anticoag Interp Pending Prot C Funct Activity Pending APC Resistance Ratio Pending Protein S Activity Pending Antithrombin III Activ Pending Factor V Leiden Mutat Pending Factor V Mutat Interp Pending Sodium 141 Potassium 4.2 Chloride 106 Carbon Dioxide 27 Anion Gap 8 BUN 11 Creatinine 0.64 L Estim Creat Clear Calc 115 Estimated GFR > 60 Glucose 89 Hemoglobin A1c 5.1 5.1 Calcium 8.8 Magnesium 2.1 Total Bilirubin 0.5 AST 30 ALT 22 Alkaline Phosphatase 76 C-Reactive Protein 0.6 Total Protein 7.0 Albumin 3.8 Triglycerides 71 Cholesterol 131 LDL Cholesterol Direct 42 HDL Direct 64 Lipoprotein (a) Pending Vitamin B12 362.0 Vitamin D 25-Hydroxy 37.1 Folate 16.3 Homocysteine Pending TSH 1.020 Anti-Cardiolipin IgG Ab Pending Anti-Cardiolipin IgA Ab Pending Anti-Cardiolipin IgM Ab Pending MTHFR DNA Mutation Anal Pending MTHFR Interpretation Pending Prothrombin Gene Mutate Pending Prothromb Gene Comment Pending Discharge Plan Discharge Attending physician on discharge: Marcos Ballard Consulting providers: Juan Sanchez Discharging Clinician: Marcos Ballard Anticipated Discharge Date/Time: 09/24/24 12:40 Patient Disposition: Home Activity: as tolerated Diet: as tolerated Patient Instructions: Antibiotic Form Patient Language: Yoruba Stand Alone Forms: General Discharge Information Follow-up/Referrals: Juan Sanchez MD [Physician] - (F/u with neurology as instructed ) UNKNOWN,DOCTOR [Primary Care Provider] - (F/u with PCP in 3-5 days ) Discharge Medications: New aspirin 81 mg Tablet,Delayed Release (Dr/Ec) 81 mg PO QAM 30 Days Qty: 30 1RF Continued midodrine 5 mg tablet 5 mg PO DIRECTED Hadlima(CF) PushTouch 40 mg/0.4 mL auto-injector 40 mg SUBCUT WEEKLY calcium citrate-vitamin D3 [Calcium Citrate + D] 315 mg-5 mcg (200 unit) tablet 1 tablet PO DAILY One-A-Day Womens Formula 18 mg iron-400 mcg-500 mg Ca tablet 1 tablet PO DAILY Date of admission: 09/23/24 09:32 Primary Care Provider: UNKNOWN,DOCTOR Admitting Provider: Linda Mendoza Attending physician on admission: Linda Mendoza Condition: Stable
[2024-09-24 20:02] LABS: Lupus dRVVT Screen 38 sec (< OR = 45); PTT-LA Screen 34 sec (< OR = 40)
[2024-09-25 05:48] LABS: Anti Cardio Antibody IgM <2.0 MPL-U/mL; Anti Cardiolipin Antibody IgA <2.0 APL-U/mL; Anti Cardiolipin Antibody IgG <2.0 GPL-U/mL
[2024-09-25 15:59] LABS: Lipoprotein A <10 nmol/L
[2024-09-27 11:48] LABS: Homocysteine 7.7 umol/L (<10.4)
[2024-09-27 18:43] LABS: Antithrombin III Activity 104 % normal (80-135)
[2024-09-28 04:09] LABS: APC Ratio 4.8 ratio (>=2.1)
[2024-09-30 11:09] LABS: Factor V (Leiden) Mutation NEGATIVE
== END 2024-09-24 13:16 | disposition home or self-care (01) ==
LOC: ANHED 08:06 → ANHIMU 10:01
PROVIDERS: Psychiatry & Neurology Neurology; Admitting Provider Internal Medicine; Emergency Provider Emergency Medicine; Visit Provider Internal Medicine
DX: G45.9 Transient cerebral ischemic attack, unspecified (principal); F17.290 Nicotine dependence, other tobacco product, uncomplicated; M06.9 Rheumatoid arthritis, unspecified; Z98.84 Bariatric surgery status; Z79.899 Other long term (current) drug therapy
CPT/HCPCS: 36415; 70450; 70496; 70498; 70553; 71045; 80053; 80061; 81025; 81240; 81241; 81291; 82306; 82607; 82746; 82948; 83036; 83090; 83695; 83735; 84443; 84484; 85025; 85300; 85303; 85306; 85307; 85384; 85610; 85613; 85730; 86140; 86147; 92523; 93005; 93306; 96374; 96375; 99285; A9270; A9579; G0378; Q9967

== ENCOUNTER 2024-12-02 16:00 | Outpatient (CLI) | payer OTHER, SELFPAY ==
--- NOTE | ~2024-12-02 | XR_ITS ---
XR shoulder LT min 2V 12/02/2024 16:23 Indication: Left shoulder pain Procedure: 4 views left shoulder Comparison: No prior studies for comparison. Findings: No acute fracture, subluxation or dislocation. No soft tissue abnormality. No foreign henrik s. Impression: 1: No significant bone or joint abnormality. Reviewed, dictated and finalized at location A. Impression: 1: No significant bone or joint abnormality.
--- OUTSIDE RECORDS SUMMARY | 2024-12-02 16:09 | XMS_ITS | Clinical Summary ---
Author Organization [facility] Address [address] [place] [address] Care Team Providers Care El Teacher Name Role Phone Kingsley Cavanaugh MD Primary [...] Comments Blood Pressure 111/73 06/09/2021 7:35 PM HOGSHEAD MAT ASSEMBLER Pulse 114 06/09/2021 7:35 PM HOGSHEAD MAT ASSEMBLER Temperature 36.5 C (97.7 F) 06/09/2021 7:35 PM HOGSHEAD MAT ASSEMBLER Respiratory Rate 24 06/09/2021 7:35 PM HOGSHEAD MAT ASSEMBLER Oxygen Saturation 100% 06/09/2021 7:45 PM HOGSHEAD MAT ASSEMBLER Inhaled Oxygen Concentration - - Weight 163.3 kg (360 lb) 10/28/2018 8:02 PM CDT Height 167.6 cm (5' 6) 10/28/2018 8:02 PM CDT Body Mass Index 58.11 10/28/2018 8:02 PM CDT Plan of Treatment Health Maintenance Due Date Last Done Comments Cervical Cancer Screening Pap Smear (Age 30 to 64) Every 3 Years 1987 Annual Physical 11/12/1990 HPV Vaccines (1 - 3-dose SCDM series) 11/12/2014 Cervical Cancer Screening Pap with HPV Testing (Age 30 to 64) Every 5 Years 11/12/2017 Cervical Cancer Screening with HPV 11/12/2017 COVID-19 Vaccine ( season) 2024 12/27/2020, 06/22/2020, 06/02/2020 DTaP, Tdap and Td Vaccines (10 - Td or Tdap) 01/15/2030 01/16/2020, 12/24/2001, 01/15/1998, Additional history exists Hepatitis B Vaccines Completed 08/16/1997, 03/15/1997, 02/15/1997 Hepatitis C Completed 12/28/2021 Meningococcal B Vaccine Aged Out No l [...] to complete this topic Insurance Care Teams El Teacher Relationship Specialty Start Date End Date Kingsley Cavanaugh MD PCP - General FAMILY PRACTICE 10/28/18
--- OUTSIDE RECORDS SUMMARY | 2024-12-02 16:09 | XMS_ITS | Encounter Summary ---
Author Organization [facility] Address [address] [place], [place] [address] [address] Care Team Providers Care Warehouse Processor Name Role Phone Mao Capps MD, Kingsley Mckeon Primary Care Provider Carlos Lopez MD Unavailable Jyoti Alfonso [facility] Unavailable Mao Capps MD, Kingsley Mckeon Unavailable Willian Resendiz MD Unavailable [phone] Judith Noonan CLINICAL LEADER Unavailable Reason for Visit * Reason Onset Date Comments General 09/13/2021 Encounter Details Date Type Department Care Team (Late st Contact Info) Description 09/13/2021 Telephone [facility] [address] [facility] [address] [facility], [facility] [place] [address] Norma Mata MD [address] [place] [address] [address] [place] [address] General Social History Tobacco Use [...] fax number to Dr. Levi office is [phone]. Please advise.. documented in this encounter Plan of Treatment Upcoming Encounters Date Type Department Care Team (Late st Contact Info) Description 01/17/2025 3:40 PM CDT Office Visit [facility] - Rheumatology [address] [facility] [address] [facility], [address] [place] [address] Pasquale Diaz DO [address] [facility] [place] [address] documented as of this encounter [...] on filedocumented in this encounter Care Teams Warehouse Processor Relationship Specialty Start Date End Date Kingsley Cavanaugh Jr., MD PCP - General Family Medicine 03/17/17 Kingsley Cavanaugh Jr., MD [address] [place] [address] [facility] 11/10/19 10/28/22 Carlos Lopez MD [address] [place] [address] Rheumatology 03/17/17 Jyoti Alfonso, SWEETIE-CONFIGURATION MANAGEMENT ADMINISTRATOR [address] [place] [address] Nurse Practitioner [facility] 12/16/18 Willian Resendiz MD [address] [place] [address] Neurology 04/24/20 Judith Noonan MSW Outpatient Records Management Associate Care Management 03/28/23 04/11/23 documented as of this encounter
--- OUTSIDE RECORDS SUMMARY | 2024-12-02 16:09 | XMS_ITS ---
Author Organization [facility] Address [address] [place] [address] Care Team Providers Care Burrer Hand Name Role Phone Neelima Sanchez MD Primary Care Provider [phone] Transplant Episode Kidney Potential Donor [facility] ([place], [place]) - [facility] Referred on 12/23/2019 Marked as Active on 12/23/2019 Kidney CoordinatorLauren Reis RN Fax: N/A Email: N/A Care Team Name Role Phone Fax Email Lauren Reis RN Kidney Coordinator [phone] N/A N/A Events Pre-Donation Referred: 12/23/2019
--- OUTSIDE RECORDS SUMMARY | 2024-12-02 16:09 | XMS_ITS | Referral Summary ---
Author Organization [facility] Address [address] [place] [address] Care Team Providers Care Air Launch Weapons Technician Name Role Phone Neelima Sanchez MD Primary Care Provider [phone] Allergies No known active allergies Medications ENBREL [...] on file Legal Sex Female 2:37 AM RECORDAK OPERATOR Gender Identity Not on file Sexual Orientation [...] 10:38 AM CDT Height 167.6 cm (5' 6) 03/05/2017 10:38 AM CDT Body Mass Index 56.81 03/05/2017 10:38 AM CDT Plan of Treatment Not on file Insurance [facility]NOTE 3[facility] CHOICE [facility]US [facility] H[facility]/PPO Address: [facility] [id number] [place] [address] Care Teams Air Launch Weapons Technician Relationship Specialty Start Date End Date Neelima Sanchez MD [address] [facility] [address] [place] [address] PCP - General Rheumatology 04/07/17
--- OUTSIDE RECORDS SUMMARY | 2024-12-02 16:09 | XMS_ITS | Clinical Summary ---
Author Organization [facility] Address [address] [facility] [place] [place] [address] Care Team Providers Care Blade Filer Name Role Phone Mao Capps MD, Kingsley Mckeon Primary Care Provider Carlos Lopez MD Unavailable [phone] Jyoti Alfonso [facility] Unavailable [phone] Willian Resendiz MD Unavailable [phone] Source Comments [facility],non-owned Affiliates and Associated Physician Practices is amultiple site organization consisting of ambulatory clinics and hospital sitesin [place], [place], [place] and [place]. This disclosure is being madepursuant to the Care Everywhere program and may not contain all information available regarding this patient. Last updated 18.[facility] Allergies Active Allergy Reactions Criticality Noted Date [...] fluticasone propionate (Flonase) 50 MCG/ACT nasal spray [place] 2 (two) sprays into each nostril once [...] Active Problems Problem Noted Date Diagnosed Date Cerebrovascular accident (CVA), unspecified mech anism 09/23/2024 Hiatal hernia 03/26/2023 Long-term current use of imm unosuppressive biologic agent (adalimumab biosimilar)) 09/30/2022 Pannus, abdominal 12/28/2021 Class 1 obesity due to exces s calories with body mass index (BMI) of 33.0 to 33.9 in adult 08/19/2019 Seropositive rheumatoid arthritis 08/19/2019 Overview (05/24/2021): 12/27/2020 OV, Dr. Lopez 06/29/2020 OV, Carlos Harris MD 06/30/19 Assessment & Plan (06/27/2021 4:01 PM DOPING SUPERVISOR): Sustained clinical remission status on a combination [...] or sooner if needed (hopefully not). Methotrexate, residential, current use 06/27/2021 07/24/2023 Assessment & Plan (06/27/2021 4:02 PM DOPING SUPERVISOR): No recent findings suggest developing side effects [...] 11/21/2020 OV, Alexa Mccracken NP Obese 08/19/2019 Encounters Date Type Department Care Team Description 10/26/2024 Telephone [facility] - Rheumatology [address] [place] [address], [address] [place] [address] Pasquale Diaz, Medication Prior Auth Request from Last 3 Months Immunizations Immunization Administration Dates Next Due INFLUENZA [...] Recorded Patient Health Questionnaire-2 Score 0 07/23/2023 [facility] - [facility] Stress [...] place to sleep or slept in a snf (including now)? No 03/26/2023 Comments No Sex [...] 3:44 PM CDT Height 165.1 cm (5' 5) 01/22/2024 3:44 PM CDT Body Mass Index 33.45 01/22/2024 3:44 PM CDT Plan of Treatment Upcoming Encounters Date Type Department Care Team (Late st Contact Info) Description 01/17/2025 3:40 PM CDT Office Visit [facility] - Rheumatology [address] [facility], [address] [place] [address] Pasquale Diaz DO [address] [facility] [address] [place] [address] Health Maintenance Due Date Last Done Comments HEPATITIS B VACCINE (2 of 3 - 3-dose series) 09/13/1997 08/16/1997 HPV VACCINE (1 - 3-dose SCDM series) 11/12/2014 COVID-19 VACCINE ( season) 2024 12/27/2020, 06/22/2020, 06/02/2020 DEPRESSION SCREENING 05/12/2024 07/23/2023, 04/01/2023, 08/06/2021 PAP with HPV 10/26/2024 10/27/2019 (Done Outside Per Report) INFLUENZA VACCINE (#1) 2025 , 02/19/2020, 03/02/2019 (Done Outside Per Patient), Additional history exists DTAP/TDAP/TD VACCINES (7 - Td or Tdap) 01/15/2030 01/16/2020, 01/15/1998, 06/12/1989, Additional history exists ZOSTER VACCINE (1 of 2) 11/12/2037 HIB VACCINE Completed 06/12/1989 HEPATITIS C SCREENING Completed 12/28/2021 , 02/26/2021, 12/24/2019, Additional history exists HIV SCREENING Completed 12/28/2021 MENINGOCOCCAL (Group B) VACCINE SHARED DECISION-MAKING Aged [...] AG PANEL (12/28/2021 5:35 PM CDT) Pathologist [facility] HIV1/2 Ab + P24 Ag Non Reactive Non Reactive 12/28/2021 6:[address] [facility] Blood BLOOD SPECIMEN / Unknown Venipuncture / Unknown 12/28/2021 5:35 PM CDT 12/28/2021 6:[address] [facility] - 12/28/2021 6:47 PM CDT No Laboratory evidence of HIV infection. Penny Levi MD LAB - CHEMISTRY ORDERABLES Bessy andrew Result Performing Organization Address City/State/[facility] Co de Phone Number [facility] [address] [place], [place] [id number] * HEPATITIS C RNA QUANTITATIVE PCR (12/28/2021 5:35 PM CDT) Pathologist [facility] Hepatitis C RNA PCR, Interp Not detected Not detected 01/01/2022 9:07 AM CDT [facility] Blood BLOOD SPECIMEN / Unknown Venipuncture / Unknown 12/28/2021 5:35 PM CDT 12/28/2021 6:09 PM CDT Narrative [facility] - 01/01/2022 9:07 AM CDT The Hepatitis C viral (HCV) RNA analysis utilized a serum sample, real-time reverse central sterile tech PCR, and is reported as Not Detected, [...] the isolation of HCV RNA with reverse central sterile tech of genomic HCV RNA followed by real-time PCR in the presence of an unrelated RNA internal control. The internal control ensures that RNA is isolated, and that no general significant inhibitors of the RT-PCR process are present. The analysis was performed using a U.S. FDA approved test methodology. Kyle Rushing MD LAB - CHEMISTRY ORDERABLES Fin al Result [facility] [address] [place], [place] [address], [facility] [phone] from Last 3 Months or Most Recently Relevant to Health Maintenance Insurance [employer] Advance Directives * Full Code (Latest Code Status on File) Date Activated Date Inactivated Comments 03/26/2023 4:22 PM 03/27/2023 5:01 PM * Full Code Date Activated Date Inactivated Comments 12/28/2021 6:05 PM 12/29/2021 3:25 PM * Full Code Date Activated Date Inactivated Comments 10/20/2018 5:36 PM 10/21/2018 6:49 PM Healthcare Agents on File Name Relationship Healthcare Agent Relationshi p Communication Niya Amaral Mother Patient Air Vice Marshal ([place], [place], [place]) Care Teams Blade Filer Relationship Specialty Start Date End Date Kingsley Cavanaugh Jr., MD PCP - General Family Medicine 03/17/17 Carlos Lopez MD [address] [place] [address] Rheumatology 03/17/17 Jyoti Alfonso, [facility] [address] [place] [address] Nurse Practitioner [facility] 12/16/18 Willian Resendiz MD [address] [place], [place] [id number] Neurology 04/24/20
--- OUTSIDE RECORDS SUMMARY | 2024-12-02 16:09 | XMS_ITS | Encounter Summary ---
Author Organization [facility] Address [address] [facility] [address] Care Team Providers Care Security Clerk Name Role Phone Gentry Aparicio MD Primary Care Provider [phone] Mao Capps MD, Kingsley Mckeon Primary Care Provider Carlos Lopez MD Unavailable [phone] Mago Heller MD Unavailable [phone] Jyoti Alfonso POLE INSPECTOR-ENGLISH COMPOSITION TEACHER Unavailable Maria Brower POLE INSPECTOR-ENGLISH COMPOSITION TEACHER Unavailable + [phone] Mao Capps MD, Joseph Theodore Unavailable Willian Resendiz MD Unavailable [phone] Judith Noonan Unavailable [phone] Mao Capps MD, Joseph Theodore Unavailable Mao Capps MD, Joseph Theodore Unavailable Maria Brower POLE INSPECTOR-ENGLISH COMPOSITION TEACHER Unavailable + [phone] Encounter Details Date Type Department Care Team (Late st Contact Info) Description 12/31/2016 Lab Requisition [facility] [address] [place] [address] Unknown, Provider Social History Tobacco Use Types [...] 01/17/2025 3:40 PM CDT Office Visit [facility] - Rheumatology [address] [facility], [address] [place] [address] Pasquale Diaz DO [address] [facility] [address] [place] [address] documented as of this encounter Procedures Procedure Name Priority Date/Time Associated Diagnosis Comments VARICELLA ZOSTER ANTIBODY IGG Routine 12/31/2016 9:20 AM CDT documented in this encounter Results * VARICELLA ZOSTER ANTIBODY IGG (12/31/2016 9:20 AM CDT) Varicella zoster Virus Antibody IgG 669 Immune >165 index 01/02/2017 12:13 PM CDT [facility] ([facility]) Comment: Negative <135 Equivocal 135 - 165 Positive >165 A positive result generally indicates exposure to the pathogen or administration of specific immunoglobulins, but it is not indication of active infection or stage of disease. Blood BLOOD SPECIMEN / Unknown Venipuncture / Unknown 12/31/2016 9:20 AM CDT 12/31/2016 6:01 PM CDT Narrative [facility] ([facility]) - 01/02/2017 12:13 PM CDT Performed at: [address] [place] [id number] Mash Filter Operator: Miguel Ko PhD, Phone: [phone] us Provider Unknown LAB - CHEMISTRY ORDERABLES Bessy morales Result [facility] ([facility]) [address] [place] [address] documented in this encounter Visit Diagnoses Not on filedocumented in this encounter Additional Health Concerns Infection Onset Date Last Indicated Resolved Time COVID-19 Under Investigation 01/18/2020 01/18/2020 01/18/2020 8:33 PM CDT documented as of this encounter Care Teams Security Clerk Relationship Specialty Start Date End Date Gentry Aparicio MD [address] [facility] [address] [place] [address] PCP - General Internal Medicine 12/31/16 03/16/17 Kingsley Cavanaugh Jr., MD [address] [place] [address] [address] [place] [address] PCP - General Family Medicine 03/17/17 Maria Brower APRN-ENGLISH COMPOSITION TEACHER [address] [place] [address] PCP - Attributed-Exclusive Choice 04/11/19 05/11/19 Kingsley Cavanaugh Jr., MD [address] [place] [address] PCP - Attributed-[facility] 11/10/19 10/28/22 Kingsley Cavanaugh Jr., MD [address] [place] [address] PCP - Attributed-Exclusive Choice 05/14/17 09/17/18 Kingsley Cavanaugh Jr., MD [address] [place] [address] PCP - Attributed-Exclusive Choice 01/10/19 04/10/19 Maria Brower APRN-ENGLISH COMPOSITION TEACHER [address] [place], [place] [id number] PCP - Attributed-Exclusive Choice 11/09/18 01/09/19 Carlos Lopez MD [address] [facility] [address] [place] [address] Rheumatology 03/17/17 Mago Heller MD [address] [facility] [address] [place] [address] Obstetrics and Gynecology 03/17/17 12/15/18 Jyoti Alfonso, POLE INSPECTOR-[facility] [address] [place], [place] [address] Nurse Practitioner [facility] 12/16/18 Willian Resendiz MD [address] [facility] [address] [place] [address] Neurology 04/24/20 Judith Noonan MSW Outpatient Business Planner Care Management 03/28/23 04/11/23 documented as of this encounter
--- OUTSIDE RECORDS SUMMARY | 2024-12-02 16:09 | XMS_ITS | Clinical Summary ---
Author Organization [facility] Chery abreu K[facility] Address [address] [facility] [place] [address] Care Team Providers Care Manager Utilization Management Name Role Phone Unavailable Primary Care Provider Unavailabl e Social History Tobacco Use Types Packs/Day Years Used Date Smoking Tobacco: Never Assessed Comments Unknown Sex and Gender Information Value Date Recorded Sex Assigned at Not on file Legal Sex Female 11:51 AM CDT Gender Identity Not on file Sexual Orientation Not on file Plan of Treatment Upcoming Encounters Date Type Department Care Team (Late st Contact Info) Description 03/14/2025 3:00 PM MAP CLERK Office Visit [facility] Oncology and Hematology - [place] [address] [facility] [address] [place] [address] Mookie Henry MD [address] [facility] [address] [place] [address] Health Maintenance Due Date Last Done Comments HPV VACCINES (1 - 3-dose series) 11/12/2002 DTAP/TDAP/TD VACCINES (1 - Tdap) 11/12/2006 HEPATITIS B VACCINES (1 of 3 - 19+ 3-dose series) 08/2006 HPV/Cotest (21-29) 11/12/2008 CERVICAL CANCER SCREENING 11/12/2017 HPV/Cotest (30-65) 11/12/2017 PAP SMEAR 11/12/2017 INFLUENZA VACCINE (#1) 2024
--- OUTSIDE RECORDS SUMMARY | 2024-12-02 16:09 | XMS_ITS | Clinical Summary ---
Author Organization [facility] Address [address] [place] [address] Care Team Providers Care Squeegee Finisher Name Role Phone Neelima Sanchez MD Primary Care Provider [phone] Allergies No known active allergies Medications ENBREL [...] on file Legal Sex Female 2:37 AM PATTERNMAKER WOOD Gender Identity Not on file Sexual Orientation [...] Plan of Treatment Not on file Insurance [facility] CHOICE PLUS [facility] HMO/PPO Address: [facility] [address] [address] Care Teams Squeegee Finisher Relationship Specialty Start Date End Date Neelima Sanchez MD [address] [facility] [address] [place] [address] PCP - General Rheumatology 04/07/17
== END 2024-12-02 16:01 | disposition home or self-care (01) ==
PROVIDERS: Visit Provider Psychiatry & Neurology Neurology
DX: M25.512 Pain in left shoulder (principal); R20.2 Paresthesia of skin
CPT/HCPCS: 73030

== ENCOUNTER 2025-01-19 13:26 | Outpatient (CLI) | payer OTHER, SELFPAY ==
--- NOTE | 2025-01-19 13:40 | NEURO_ITS ---
Impression: # Non diabetic with history of Rheumatoid Arthritis complains of numbness of left upper extremity. # Normal Nerve Conduction Study. # Normal Needle/ EMG exam. # Clinical correlation recommended, could be compatible with small fiber neuropathy. Nerve Conduction Studies ?Stim Site NR Peak (ms) P-T Amp (?V) Site1 Site2 Delta-P (ms) Dist (cm) Apolinar (m/s) Left Median Anti Sensory (2-3nd Digit) Wrist ? 2.8 32.9 Wrist 2-3nd Digit 2.8 14.0 50 Wrist ? 2.8 33.2 Wrist 2-3nd Digit 2.8 14.0 50 Left Radial Anti Sensory (Base 1st Digit) Wrist ? 1.9 27.0 Wrist Base 1st Digit 1.9 0.0 Left Ulnar Anti Sensory (5th Digit) Wrist ? 2.3 31.1 Wrist 5th Digit 2.3 14.0 61 ?Stim Site NR Onset (ms) O-P Amp (mV) Site1 Site2 Delta-0 (ms) Dist (cm) Apolinar (m/s) Left Median Motor (Abd Poll Brev) Wrist ? 3.4 5.3 Elbow Wrist 4.6 26.0 57 Elbow ? 8.0 5.7 Left Ulnar Motor (Abd Dig Minimi) Wrist ? 1.9 6.3 A Elbow Wrist 5.4 30.0 56 A Elbow ? 7.3 4.3 B Elbow Wrist 3.8 20.0 53 B Elbow ? 5.7 6.0 F Wave Studies ?NR F-Lat (ms) L-R F-Lat (ms) Left Median (Mrkrs) (Abd Poll Brev) ? 27.49 Left Ulnar (Mrkrs) (Abd Dig Min) ? 23.31 Electromyography ?Side Muscle Nerve Root Ins Act Fibs Amp Dur Recrt Comment Left 1stDorInt Ulnar C8-T1 Nml Nml Nml Nml Nml Left Ext Indicis Radial (Post Int) C7-8 Nml Nml Nml Nml Nml Left Ext Digitorum Radial (Post Int) C7-8 Nml Nml Nml Nml Nml Left BrachioRad Radial C5-6 Nml Nml Nml Nml Nml Left PronatorTeres Median C6-7 Nml Nml Nml Nml Nml Left Abd Poll Brev Median C8-T1 Nml Nml Nml Nml Nml Left ABD Dig Min Ulnar C8-T1 Nml Nml Nml Nml Nml Left FlexPolLong Median (Ant Int) C7-8 Nml Nml Nml Nml Nml Left Abd Poll Long Radial (Post Int) C7-8 Nml Nml Nml Nml Nml
--- OUTSIDE RECORDS SUMMARY | 2025-01-19 14:08 | XMS_ITS ---
Author Organization [facility] Address [address] [place] [address] Care Team Providers Care Raspberry Checker Name Role Phone Neelima Sanchez MD Primary Care Provider [phone] Transplant Episode Kidney Potential Donor [facility] ([place], [place]) - [facility] Referred on 12/23/2019 Marked as Active on 12/23/2019 Kidney CoordinatorLauren Reis RN Fax: N/A Email: N/A Care Team Name Role Phone Fax Email Lauren Reis RN Kidney Coordinator [phone] N/A N/A Events Pre-Donation Referred: 12/23/2019
--- OUTSIDE RECORDS SUMMARY | 2025-01-19 14:08 | XMS_ITS | Clinical Summary ---
Author Organization [facility] Address [address] [facility] [place] [address] Care Team Providers Care Route Contractor Name Role Phone Unavailable Primary Care Provider [...] st Contact Info) Description 03/14/2025 3:00 PM SOCIAL WORK PROFESSOR Office Visit [facility] Oncology and Hematology - [place] [address] [facility] [address] [place] [address] Mookie Henry MD [address] [facility] [address] [place] [address] Health Maintenance Due Date Last Done Comments DTAP/TDAP/TD VACCINES (1 - Tdap) 11/12/2006 HEPATITIS B VACCINES (1 of 3 - 19+ 3-dose series) 08/2006 HPV/Cotest (21-29) 11/12/2008 HPV VACCINES (1 - 3-dose SCDM series) 11/12/2014 CERVICAL CANCER SCREENING 11/12/2017 HPV/Cotest (30-65) 11/12/2017 PAP SMEAR 11/12/2017 INFLUENZA VACCINE (#1) 2024
--- OUTSIDE RECORDS SUMMARY | 2025-01-19 14:08 | XMS_ITS | Clinical Summary ---
Author Organization [facility] Address [address] [place] [address] Care Team Providers Care Boat Pilot Name Role Phone Neelima Sanchez MD Primary Care Provider [phone] Allergies No known active allergies Medications ENBREL [...] on file Legal Sex Female 2:37 AM SENIOR STOCK PLAN ADMINISTRATOR Gender Identity Not on file Sexual Orientation [...] Plan of Treatment Not on file Insurance [facility] CHOICE PLUS Care Teams Boat Pilot Relationship Specialty Start Date End Date Neelima Sanchez MD [address] [facility] [address] [place] [address] PCP - General Rheumatology 04/07/17
--- OUTSIDE RECORDS SUMMARY | 2025-01-19 14:08 | XMS_ITS | Clinical Summary ---
Author Organization [facility] Address [address] [place] [address] Care Team Providers Care Barrelhead Inspector Name Role Phone Kingsley Cavanaugh MD Primary Care Provi tapan Allergies No known active allergies Encounters Date Type Department Care Team Description 12/31/2024 2:28 PM CDT - 12/31/2024 11:59 PM CDT Hospital Encounter [facility] [address] [place] [address] Riley Godwin MD Discharge Disposition: Home or Self Care (Routine Discharge) 12/31/2024 Travel from Last 3 Months Social History Tobacco Use Types Packs/Day Years [...] Comments Blood Pressure 111/73 06/09/2021 7:35 PM BARRELHEAD INSPECTOR Pulse 114 06/09/2021 7:35 PM BARRELHEAD INSPECTOR Temperature 36.5 C (97.7 F) 06/09/2021 7:35 PM BARRELHEAD INSPECTOR Respiratory Rate 24 06/09/2021 7:35 PM BARRELHEAD INSPECTOR Oxygen Saturation 100% 06/09/2021 7:45 PM BARRELHEAD INSPECTOR Inhaled Oxygen Concentration - - Weight 163.3 [...] with HPV 11/12/2017 COVID-19 Vaccine ( season) 2025 12/27/2020, 06/22/2020, 06/02/2020 DTaP, Tdap and Td [...] on patient's age to complete this topic Procedures Procedure Name Priority Date/Time Associated Diagnosis Comments MRI CERV SPINE WO CON Routine 12/31/2024 3:23 PM CDT Paresthesia of skin Radiculopathy, cervical region from Last 3 Months Results * MRI CERV SPINE WO CON (12/31/2024 3:23 PM CDT) Anatomical Region Laterality Modality Spine Magnetic Resonan ce 12/31/2024 3:39 PM CDT Impressions 12/31/2024 3:42 PM CDT IMPRESSION: 1) No significant abnormality is demonstrated. Ordered By: RILEY GODWIN Interpreted By: Mike Jewell MD, 12/31/2024 3:39 PM Narrative 12/31/2024 3:42 PM CDT [facility] [address] [place] [address] Examination: MRI CERV SPINE WO CON Exam time: 12/31/2024 3:03 PM Clinical history: Neck pain and left arm weakness Comparison: None Technique: Sagittal T1, T2 FSE and STIR images cervical spine. Axial T2 FSE and T2 gradient echo images. No intravenous contrast. Findings: There is a normal craniovertebral junction. Cervical vertebral bodies are in good alignment. Cervical vertebral body heights and disc spaces are well-maintained. No significant marrow replacing lesions are noted in the cervical spine. There is no acute prevertebral soft tissue swelling. Cervical spinal cord has normal morphology. No focal cervical spinal cord lesions are demonstrated. C2-3 disc level is unremarkable. C3-4 disc level is unremarkable. C4-5 disc level is unremarkable. C5-6 disc level is unremarkable. C6-7 disc level is unremarkable. C7-T1 disc level is unremarkable. No significant acute paraspinous soft tissue abnormality demonstrated in cervical region. Procedure Note Mike Jewell MD - 12/31/2024 [facility] [address] [place] [address] Examination: MRI CERV SPINE WO CON Exam time: 12/31/2024 3:03 PM Clinical history: Neck pain and left arm weakness Comparison: None Technique: Sagittal T1, T2 FSE and STIR images cervical spine. Axial T2FSE and T2 gradient echo images. No intravenous contrast. Findings: There is a normal craniovertebral junction. Cervical vertebralbodies are in good alignment. Cervical vertebral body heights and discspaces are well- maintained. No significant marrow replacing lesions arenoted in the cervical spine. There is no acute prevertebral soft tissue swelling. Cervical spinal cordhas normal morphology. No focal cervical spinal cord lesions aredemonstrated. C2-3 disc level is unremarkable. C3-4 disc level is unremarkable. C4-5 disc level is unremarkable. C5-6 disc level is unremarkable. C6-7 disc level is unremarkable. C7-T1 disc level is unremarkable. No significant acute paraspinous soft tissue abnormality demonstrated incervical region. IMPRESSION: 1) No significant abnormality is demonstrated. Ordered By: RILEY GODWIN Interpreted By: Mike Jewell MD, 12/31/2024 3:39 PM Riley Godwin MD MRI Final Result from Last 3 Months Insurance [id number] [facility] Care Teams Barrelhead Inspector Relationship Specialty Start Date End Date Kingsley Cavanaugh MD PCP - General FAMILY PRACTICE 10/28/18
== END 2025-01-19 13:27 | disposition home or self-care (01) ==
LOC: ANHNEURO 13:26
PROVIDERS: Visit Provider Psychiatry & Neurology Neurology
DX: R20.2 Paresthesia of skin (principal); M54.12 Radiculopathy, cervical region; M25.512 Pain in left shoulder; E11.9 Type 2 diabetes mellitus without complications
CPT/HCPCS: 95886; 95909

== ENCOUNTER 2025-03-22 15:01 | Outpatient (CLI) | payer OTHER, SELFPAY ==
--- OUTSIDE RECORDS SUMMARY | 2025-03-22 15:06 | XMS_ITS | Clinical Summary ---
Author Organization [facility] Chery abreu [place]cedez Address [address] [place] [address] Care Team Providers Care Automotive Quality Manager Name Role Phone Unavailable Primary Care Provider Unavailabl e Allergies No known active allergies Medications adalimumab-bwwd 40 mg/0.4 mL Auto-Injector Inject 40 mg by subcutaneous injection every 7 days. 5 Active calcium CITRATE-vitamin D3 (CITRACAL D) 315 mg-5 mcg (200 unit) Tablet Take 1 Tablet by mouth daily. Active midodrine (PROAMATINE) 5 mg tablet Take 5 mg by mouth. 4 Active nortriptyline (PAMELOR) 10 mg capsule Take 10 mg by mouth. 5 04/30/20 25 Active multivitamin (DAILY-YOSSI) tablet Take 1 Tablet by mouth daily. Active Active Problems No known active problems Encounters Date Type Department Care Team Description 03/22/2025 Abstract [facility] Oncology and Hematology [facility] [address] [place] [address] Mookie Henry MD 03/15/2025 External Device Data STL ABSTRACTION Provider, Abstract 03/15/2025 External Device Data STL ABSTRACTION Provider, Abstract 03/15/2025 External Device Data STL ABSTRACTION Provider, Abstract 03/14/2025 3:00 PM EDITOR DEPARTMENT Office Visit [facility] Oncology and Hematology [facility] [address] [place] [address] Mookie Henry MD Chronic anemia (Primary Dx); Secondary hypercoagulable state from Last 3 Months Family History Medical History Relation Name Comments No Known Problems Child Heart Disease Father Liver Cancer Father Diabetes Mother Liver Cancer Paternal Grandmother No Known Problems Sister Relation Name Status Comments Child Alive Father Mother Alive Paternal Grandmother Sister Alive Social History Tobacco Use Types Packs/Day Years Used Date Smoking Tobacco: Former Cigarettes 1 8 0 06/13/2005 - 06/13/2013 Smokeless Tobacco: Never Alcohol Use Standard Drinks/Week Comments Yes 0 (1 standard drink = 0.6 oz pur e alcohol) Occasionally Comments Unknown Sex and Gender Information Value Date Recorded Sex Assigned at Not on file Legal Sex Female 11:51 AM CDT Gender Identity Not on file Sexual Orientation Not on file Last Filed Vital Signs Vital Sign Reading Time Taken Comments Blood Pressure 119/92 03/14/2025 2:44 PM EDITOR DEPARTMENT Pulse 95 03/14/2025 2:40 PM EDITOR DEPARTMENT Temperature 37 C (98.6 F) 03/14/2025 2:40 PM EDITOR DEPARTMENT Respiratory Rate 15 03/14/2025 2:40 PM EDITOR DEPARTMENT Oxygen Saturation 97% 03/14/2025 2:40 PM EDITOR DEPARTMENT Inhaled Oxygen Concentration - - Weight 94.3 kg (208 lb) 03/14/2025 2:40 PM EDITOR DEPARTMENT Height 167.6 cm (5' 6) 03/14/2025 2:40 PM EDITOR DEPARTMENT Body Mass Index 33.57 03/14/2025 2:40 PM EDITOR DEPARTMENT Plan of Treatment Upcoming Encounters Date Type Department Care Team (Late st Contact Info) Description 03/29/2025 4:30 PM EDITOR DEPARTMENT Telephone Check Up [facility] Oncology and Hematology - [place] [address] [place] [address] Clarisa Adan MD [address] [place] [address] Health Maintenance Due Date Last Done Comments Pre-Diabetes and Diabetes Screening 1987 HPV/Cotest (21-29) 11/12/2008 HPV VACCINES (1 - 3-dose SCD M series) 11/12/2014 CERVICAL CANCER SCREENING 11/12/2017 HPV/Cotest (30-65) 11/12/2017 PAP SMEAR 11/12/2017 Preventative Visit- Commercial 05/12/2024 08/18/2020 , 03/17/2017 INFLUENZA VACCINE (#1) 2024 , 02/19/2020, 02/18/2018, Additional history exists COVID-19 Vaccine (2024-2 6 season) 2025 12/27/2020, 06/22/2020, 06/02/2020 DTAP/TDAP/TD VACCINES (10 - Td or Tdap) 01/15/2030 01/16/2020, 12/24/2001, 01/15/1998, Additional history exists HEPATITIS B VACCINES Completed 08/16/1997, 03/15/1997, 02/15/1997 Insurance
--- OUTSIDE RECORDS SUMMARY | 2025-03-22 15:06 | XMS_ITS ---
Author Organization [facility] Address [address] [place] [address] Care Team Providers Care Offset Assistant Press Operator Name Role Phone Neelima Sanchez MD Primary Care Provider [phone] Transplant Episode Kidney Potential Donor [facility] ([place], [place]) - [facility] Referred on 12/23/2019 Marked as Active on 12/23/2019 Kidney CoordinatorLauren Reis RN Fax: N/A Email: N/A Care Team Name Role Phone Fax Email Lauren Reis RN Kidney Coordinator [phone] N/A N/A Events Pre-Donation Referred: 12/23/2019
--- OUTSIDE RECORDS SUMMARY | 2025-03-22 15:06 | XMS_ITS | Encounter Summary ---
Author Organization [facility] Address [address] [place] [address] Care Team Providers Care English Language Learner Teacher Name Role Phone Unavailable Primary Care Provider Unavailabl e Encounter Details Date Type Department Care Team ([facility] Contact Info) Description 03/22/2025 Abstract [facility] Oncology and Hematology - [place] [address] [place] [address] Mookie Henry MD [address] [facility] [address] [place] [address] Social History Tobacco Use Types Packs/Day Years [...] Encounters Date Type Department Care Team (Late Contact Info) Description 03/29/2025 4:30 PM SERVICES HOST Telephone Check Up [facility] Oncology and Hematology - [place] [address] [place] [address] Clarisa Adan MD [address] [place] [address] documented as of this encounter Visit Diagnoses Not on filedocumented in this encounter
--- OUTSIDE RECORDS SUMMARY | 2025-03-22 15:06 | XMS_ITS | Clinical Summary ---
Author Organization [facility] Address [address] [place] [address] Care Team Providers Care Retail Furniture Sales Name Role Phone Neelima Sanchez MD Primary Care Provider [phone] Allergies No known active allergies Medications ENBREL [...] on file Legal Sex Female 2:37 AM AD TERMINAL MAKEUP OPERATOR Gender Identity Not on file Sexual [...] Plan of Treatment Not on file Insurance [facility] CHOICE PLUS Care Teams Retail Furniture Sales Relationship Specialty Start Date End Date Neelima Sanchez MD [address] [facility] [address] [place] [address] PCP - General Rheumatology 04/07/17
--- OUTSIDE RECORDS SUMMARY | 2025-03-22 15:06 | XMS_ITS | Encounter Summary ---
Author Organization [facility] Address [address] [place], [place] [address] [address] Care Team Providers Care Chancery Clerk Name Role Phone Mao Capps MD, Kingsley Mckeon Primary Care Provider Carlos Lopez MD Unavailable Jyoti Alfonso [facility] Unavailable [phone] Mao Capps MD, Kingsley Mckeon Unavailable Willian Resendiz MD Unavailable Judith Noonan OVEN TECHNICIAN Unavailable [phone] Reason for Visit * Reason Onset Date Comments General 09/13/2021 Encounter Details Date Type Department Care Team (Late st Contact Info) Description 09/13/2021 Telephone [facility] Dermatology [address] [facility], [facility] [place] [address] Norma Mata MD [address] [place] [address] [address] [place] [address] General Social History Tobacco Use [...] fax number to Dr. Levi office is [phone]. Please advise.. documented in this encounter Plan of Treatment Upcoming Encounters Date Type Department Care Team (Late st Contact Info) Description 01/23/2026 3:40 PM CDT Office Visit [facility] - Rheumatology [address] [facility], [address] [place] [address] Pasquale Diaz DO [address] [facility] [address] [place] [address] documented as of this encounter [...] on filedocumented in this encounter Care Teams Chancery Clerk Relationship Specialty Start Date End Date Kingsley Cavanaugh Jr., MD PCP - General Family Medicine 03/17/17 Kingsley Cavanaugh Jr., MD [address] [place] [address] PCP - [facility] 11/10/19 10/28/22 Carlos Lopez MD [address] [place] [address] Rheumatology 03/17/17 Jyoti Alfonso, SWEETIE-NIB ADJUSTER [address] [place] [address] Nurse Practitioner [facility] 12/16/18 Willian Resendiz MD [address] [place] [address] Neurology 04/24/20 Judith Noonan MSW Outpatient Newspaper Journalist Care Management 03/28/23 04/11/23 documented as of this encounter
--- OUTSIDE RECORDS SUMMARY | 2025-03-22 15:06 | XMS_ITS | Clinical Summary ---
Author Organization [facility] [employer] Address [address] [place] [address] Care Team Providers Care Paste Mixing Supervisor Name Role Phone Mao Capps MD, Kingsley Mckeon Primary Care Provider Carlos Lopez MD Unavailable [phone] Jyoti Alfonso VICE PRESIDENT [facility] Unavailable [phone] Willian Resendiz MD Unavailable [phone] Source Comments [facility],non-owned Affiliates and Associated Physician Practices is amultiple site organization consisting of ambulatory clinics and hospital sitesin [place], [place], [place] and [place]. This disclosure is being madepursuant to the Care Everywhere program and may not contain all information available regarding this patient. Last updated 18.[facility] Allergies Active Allergy Reactions Criticality Noted Date [...] fluticasone propionate (Flonase) 50 MCG/ACT nasal spray [place] 2 (two) sprays into each nostril once daily 48 g 4 2 Active midodrine (Proamatine) 5 MG tablet Take 1 (one) tablet by mouth 3 times daily before meals Last dose 1600. 180 tablet 4 Active Adalimumab-bww d (Hadlima) 40 MG/0.4ML injectionIndic ations:Rheumat oid Arthritis Inject 0.4 mL subcutaneously every 7 days (once a week) Reasons: Rheumatoid Arthritis 1.6 mL 11 5 Active Active Problems Problem Noted Date Diagnosed Date Cerebrovascular accident (CVA), unspecified mech anism 09/23/2024 Hiatal hernia 03/26/2023 Long-term current use of imm unosuppressive biologic agent (adalimumab biosimilar)) 09/30/2022 Pannus, abdominal 12/28/2021 Class 1 obesity due to exces s calories with body mass index (BMI) of 33.0 to 33.9 in adult 08/19/2019 Seropositive rheumatoid arthritis 08/19/2019 Overview (05/24/2021): 12/27/2020 Dr. John ISRAEL 06/29/2020 OV, Carlos Harris MD 06/30/19 Assessment & Plan (06/27/2021 4:01 PM BINDER COVERSTITCH): Sustained clinical remission status on a combination [...] or sooner if needed (hopefully not). Methotrexate, equipment operator intermodal yard, current use 06/27/2021 07/24/2023 Assessment & Plan (06/27/2021 4:02 PM BINDER COVERSTITCH): No recent findings suggest developing side effects [...] Encounters Date Type Department Care Team Description 02/22/2025 Telephone [facility] - Rheumatology [address] [place] [address] Pasquale Diaz DO Question 01/17/2025 3:40 PM CDT Office Visit [facility] - Rheumatology [address] [place] [address], [address] [place] [address] Pasquale Diaz DO Seropositive rheumatoid arthritis (HCC) (Primary Dx); Long-term current use of immunosuppressive biologic agent (adalimumab biosimilar)) from Last 3 Months Immunizations Immunization Administration [...] Answer Date Recorded Patient Health Questionnaire-2 Score 1 01/17/2025 [facility] [place] [facility] - Occupational Stress [...] place to sleep or slept in a fdc (including now)? No 03/26/2023 Comments No Sex and Gender Information Value Date Recorded Sex Assigned at Not on file Legal Sex Female 10:18 AM CDT Gender Identity Not on file Sexual Orientation Not on file Last Filed Vital Signs Vital Sign Reading Time Taken Comments Blood Pressure 104/70 01/17/2025 3:49 PM CDT Pulse 60 01/17/2025 3:49 PM CDT Temperature 36.1 C (97 F) 01/17/2025 3:49 PM CDT Respiratory Rate 16 01/17/2025 3:49 PM CDT Oxygen Saturation 100% 01/17/2025 3:49 PM CDT Inhaled Oxygen Concentration - - Weight 94.3 kg (208 lb) 01/17/2025 3:49 PM CDT Height 165.1 cm (5' 5) 01/22/2024 3:44 PM CDT Body Mass Index 34.61 01/22/2024 3:44 PM CDT Plan of Treatment Upcoming Encounters Date Type Department Care Team (Late st Contact Info) Description 01/23/2026 3:40 PM CDT Office Visit [facility] - Rheumatology [address], [address] [place] [address] Pasquale Diaz, DO [address] [place] [address] Health Maintenance Due Date Last Done Comments HEPATITIS B VACCINE (2 of 3 - 3-dose series) 09/13/1997 08/16/1997 HPV VACCINE (1 - 3-dose SCDM series) 11/12/2014 PAP with HPV 10/26/2024 10/27/2019 (Done Outside Per Report) COVID-19 VACCINE ( season) 2025 12/27/2020, 06/22/2020, 06/02/2020 INFLUENZA VACCINE (#1) 2025 , 02/19/2020, 03/02/2019 (Done Outside Per Patient), Additional history exists DTAP/TDAP/TD VACCINES (7 - Td or Tdap) 01/15/2030 01/16/2020, 01/15/1998, 06/12/1989, Additional history exists ZOSTER VACCINE (1 of 2) 11/12/2037 HIB VACCINE Completed 06/12/1989 HEPATITIS C SCREENING Completed 12/28/2021 , 02/26/2021, 12/24/2019, Additional history exists HIV SCREENING Completed 12/28/2021 DEPRESSION SCREENING Completed 01/17/2025, 07/23/2023, 04/01/2023, Additional history exists MENINGOCOCCAL (Group B) VACCINE SHARED DECISION-MAKING Aged [...] AM CDT) Yes Kalie Alvarado, RN Note: Kai will call the doctor if she has [...] P24 AG PANEL (12/28/2021 5:35 PM CDT) [facility] HIV1/2 Ab + P24 Ag Non Reactive Non Reactive 12/28/2021 6:47 PM CDT [facility] Blood BLOOD SPECIMEN / Unknown Venipuncture / Unknown 12/28/2021 5:35 PM CDT 12/28/2021 6:10 PM CDT Narrative [facility] - 12/28/2021 6:47 PM CDT No Laboratory evidence of HIV infection. Penny Levi MD LAB - CHEMISTRY ORDERABLES Bessy morales Result Performing Organization Address City/State/[facility] Co de Phone Number [facility] [address] [place] [address] * HEPATITIS C RNA QUANTITATIVE PCR (12/28/2021 5:35 PM CDT) [facility] Hepatitis C RNA PCR, Interp Not detected Not detected 01/01/2022 9:07 AM CDT [facility] Blood BLOOD SPECIMEN / Unknown Venipuncture / Unknown 12/28/2021 5:35 PM CDT 12/28/2021 6:09 PM CDT [facility] - 01/01/2022 9:07 AM CDT The Hepatitis C viral (HCV) RNA analysis utilized a serum sample, real-time reverse access control specialist PCR, and is reported as Not Detected, [...] the isolation of HCV RNA with reverse access control specialist of genomic HCV RNA followed by real-time PCR in the presence of an unrelated RNA internal control. The internal control ensures that RNA is isolated, and that no general significant inhibitors of the RT-PCR process are present. The analysis was performed using a U.S. FDA approved test methodology. Kyle Rushing MD LAB - CHEMISTRY ORDERABLES Fin al Result [facility] [address] [place], [place] [address], [facility] [phone] from Last 3 Months or Most Recently [...] Relationship Healthcare Agent Relationshi p Communication Niya Zamarripa Mother Patient Catapult And Arresting Gear Officer ([place], [place], [place]) Care Teams Paste Mixing Supervisor Relationship Specialty Start Date End Date Kingsley Cavanaugh Jr., MD PCP - General Family Medicine 03/17/17 Carlos Lopez MD [address] [place] [id number] Rheumatology 03/17/17 Jyoti Alfonso, SWEETIE-PATTERN WHEEL MAKER [address] [place] [address] Nurse Practitioner [facility] 12/16/18 Willian Resendiz MD [address] [place] [address] Neurology 04/24/20
--- OUTSIDE RECORDS SUMMARY | 2025-03-22 15:06 | XMS_ITS | Encounter Summary ---
Author Organization [facility] Address [address] [place] [address] Care Team Providers Care Sales Consulting Director Name Role Phone Gentry Aparicio MD Primary Care Provider [phone] Mao Capps MD, Kingsley Mckeon Primary Care Provider Carlos Lopez MD Unavailable [phone] Mago Heller MD Unavailable [phone] Jyoti Alfonso ORDER PROCESSING MANAGER-ELEMENTARY SPANISH TEACHER Unavailable Maria Brower ORDER PROCESSING MANAGER-ELEMENTARY SPANISH TEACHER Unavailable + [phone] Mao Capps MD, Joseph Theodore Unavailable Willian Resendiz MD Unavailable [phone] Judith Noonan Unavailable [phone] Mao Capps MD, Joseph Theodore Unavailable Mao Capps MD, Joseph Theodore Unavailable Maria Brower ORDER PROCESSING MANAGER-ELEMENTARY SPANISH TEACHER Unavailable + [phone] Encounter Details Date Type Department Care Team (Late st Contact Info) Description 12/31/2016 Lab Requisition [facility] [address] [place] [id number] Unknown, Provider Social History Tobacco Use Types [...] Description 01/23/2026 3:40 PM CDT Office Visit [facility] - Rheumatology [address], [address] [place] [address] Pasquale Diaz DO [address] [place] [address] documented as of this encounter Procedures Procedure Name Priority Date/Time Associated Diagnosis Comments VARICELLA ZOSTER ANTIBODY IGG Routine 12/31/2016 9:20 AM CDT documented in this encounter Results * VARICELLA ZOSTER ANTIBODY IGG (12/31/2016 9:20 AM CDT) Varicella zoster Virus Antibody IgG 669 Immune >165 index 01/02/2017 12:13 PM CDT [facility] Comment: Negative <135 Equivocal 135 - 165 Positive >165 A positive result generally indicates exposure to the pathogen or administration of specific immunoglobulins, but it is not indication of active infection or stage of disease. Blood BLOOD SPECIMEN / Unknown Venipuncture / Unknown 12/31/2016 9:20 AM CDT 12/31/2016 6:01 PM CDT Narrative [facility] ([facility]) - 01/02/2017 12:13 PM CDT Performed at: [address] [place] [id number] Shank Skinner: Miguel Ko PhD, Phone: [phone] us Provider Unknown LAB - CHEMISTRY ORDERABLES Bessy morales Result [facility]) [address] [place] [address] documented in this encounter Visit Diagnoses Not on filedocumented in this encounter Additional Health Concerns Infection Onset Date Last Indicated Resolved Time COVID-19 Under Investigation 01/18/2020 01/18/2020 01/18/2020 8:33 PM CDT documented as of this encounter Care Teams Sales Consulting Director Relationship Specialty Start Date End Date Gentry Aparicio MD [address] [facility] [address] [place] [address] PCP - General Internal Medicine 12/31/16 03/16/17 Kingsley Cavanaugh Jr., MD [address] [place] [address] [address] [place] [address] PCP - General Family Medicine 03/17/17 Maria Brower APRN-ELEMENTARY SPANISH TEACHER [address] [address] [place] [address] PCP - Attributed-Exclusive Choice 04/11/19 05/11/19 Kingsley Cavanaugh Jr., MD [address] [place] [address] PCP - Attributed-[facility] 11/10/19 10/28/22 Kingsley Cavanaugh Jr., MD [address] [place] [address] PCP - Attributed-Exclusive Choice 05/14/17 09/17/18 Kingsley Cavanaugh Jr., MD [address] [place] [address] PCP - Attributed-Exclusive Choice 01/10/19 04/10/19 Maria Brower APRN-ELEMENTARY SPANISH TEACHER [address] [place], [place] [id number] PCP - Attributed-Exclusive Choice 11/09/18 01/09/19 Carlos Lopez MD [address] [facility] [address] [place] [address] Rheumatology 03/17/17 Mago Hleler MD [address] [facility] [address] [place] [address] Obstetrics and Gynecology 03/17/17 12/15/18 Jyoti Alfonso, ORDER PROCESSING MANAGER-[facility] [address] [place], [place] [address] Nurse Practitioner [facility] 12/16/18 Willian Resendiz MD [address] [facility] [address] [place] [address] Neurology 04/24/20 Judith Noonan MSW Outpatient Flavor Maker Care Management 03/28/23 04/11/23 documented as of this encounter
[2025-03-22 15:26] LABS: Hematocrit 40.5 % (37.0-47.0); Hemoglobin 13.1 g/dL (12.0-15.0); Mean Corpuscular HGB Conc 32.3 g/dl (32-36); Mean Corpuscular Hemoglobin 29.2 pg (26-34); Mean Corpuscular Volume 90.2 fl (80-100); Platelet Count Result 223 k/mm3 (150-375); Red Blood Count 4.49 M/mm3 (4.2-5.4); White Blood Count 9.8 K/mm3 (4.5-10.0)
[2025-03-22 16:45] LABS: Iron 98 ug/dL (37-170)
[2025-03-22 16:48] LABS: Alanine Aminotransferase 18 U/L (6-35); Albumin Level 4.3 g/dL (3.5-5.1); Alkaline Phosphatase 74 U/L (38-126); Anion Gap 9 mmol/L (4-12); Aspartate Amino Transferase 24 U/L (14-36); Bilirubin,Total 0.5 mg/dL (0.2-1.3); Blood Urea Nitrogen 15 mg/dL (7-17); Calcium 9.3 mg/dL (8.4-10.2); Carbon Dioxide 24 mmol/L (22-30); Chloride 105 mmol/L (98-107); Estimated Glomerular Filt Rate > 60; Glucose 84 mg/dL (65-110); Potassium 3.8 mmol/L (3.4-5.0); Sodium 138 mmol/L (137-145); Total Protein 7.6 g/dL (6.3-8.2)
[2025-03-22 16:59] LABS: Percent Iron Saturation 30 % (20-50)
[2025-03-22 17:22] LABS: Ferritin 60.20 ng/mL (6.24-137)
[2025-03-22 17:37] LABS: Vitamin B12 458.0 pg/mL (239-931)
[2025-03-23 14:09] LABS: Beta-2 Glycoprotein I Ab, IgG <9 (0-20)
[2025-03-24 13:08] LABS: PTT-LA 31.2 sec (0.0-43.5)
== END 2025-03-22 15:02 | disposition home or self-care (01) ==
LOC: ANHLAB 15:02
PROVIDERS: Visit Provider Internal Medicine Hematology & Oncology
DX: D68.69 Other thrombophilia (principal)
CPT/HCPCS: 36415; 80053; 82607; 82728; 83090; 83540; 83550; 85027; 85300; 85306; 85732; 86146